=== PATIENT | male | born 1990 | race Caucasian/White ===

== ENCOUNTER 2022-01-07 20:32 | Emergency (ER) | payer MEDICAID ==
[~2022-01-07] VITALS: Ht 175.3 cm; Wt 65.9 kg
[2022-01-07 20:37] VITALS: BP 129/59
[2022-01-10] MEDS ORDERED: DIAZ5TAB22 PO (07:46)
[2022-01-10] MEDS ORDERED: ONDA4TAB12 PO (07:46)
== END 2022-01-07 21:40 ==
LOC: ER 20:33
DX: S39.012A Strain of muscle, fascia and tendon of lower back, initial encounter (principal); S16.1XXA Strain of muscle, fascia and tendon at neck level, initial encounter; Z02.89 Encounter for other administrative examinations; V87.7XXA Person injured in collision between other specified motor vehicles (traffic), initial encounter; Y93.89 Activity, other specified; Y92.89 Other specified places as the place of occurrence of the external cause; Y99.8 Other external cause status
CPT/HCPCS: 72040; 72100; 99283

== ENCOUNTER 2022-01-10 16:51 | Inpatient (IN) | payer MEDICAID, OTHER ==
[~2022-01-10] VITALS: Ht 180.3 cm; Wt 63.6 kg
[~2022-01-10 16:51] MED LIST: DIAZ5TAB22 PO; ONDA4TAB12 PO
--- NOTE | 2022-01-10 19:34 | NUR ---
X RAY AT BEDSIDE
[2022-01-10] MEDS ORDERED: LORazepam 2 mg/ml vial IV STA (19:58)
[2022-01-10] MEDS ORDERED: folic acid 1mg/0.2ml inj IV SCH (20:00)
[2022-01-10] MEDS ORDERED: normal saline 1000ml 1,000 ML IV ONE (20:00)
--- NOTE | 2022-01-10 20:19 | NUR ---
PT BECOMING AGITATED. SECURITY AT BEDSIDE
[2022-01-10 20:23] LABS: BASOPHILS % (AUTO) 0.3 % (0-1); EOSINOPHILS % (AUTO) 0.2 % (0-6); HEMATOCRIT 36.4 % (42.0-52.0); HEMOGLOBIN 12.7 g/dl (14.0-17.9); LYMPHOCYTES # (AUTO) 0.8 X10'3 (1.1-4.8); LYMPHOCYTES % (AUTO) 8.4 % (21-51); MEAN CORPUSCULAR HEMOGLOBIN 35.2 PG (27.0-31.0); MEAN CORPUSCULAR HGB CONC 34.9 g/dL (33.0-36.5); MEAN CORPUSCULAR VOLUME 100.6 FL (78-98); MEAN PLATELET VOLUME 7.7 FL (7.4-10.4); MONOCYTES # (AUTO) 1.3 X10'3 (0-0.9); MONOCYTES % (AUTO) 13.6 % (2-12); NEUTROPHILS # (AUTO) 7.5 X10'3 (1.8-7.7); NEUTROPHILS % (AUTO) 77.5 % (42-75); PLATELET COUNT 174 X10'3 (140-440); RED BLOOD COUNT 3.62 X10'6 (4.70-6.10); RED CELL DISTRIBUTION WIDTH 14.4 % (11.5-14.5); WHITE BLOOD COUNT 9.7 X10'3 (4.5-11.0)
[2022-01-10] MEDS ORDERED: LORazepam 2 mg/ml vial IM ONE (20:30)
[2022-01-10 20:39] LABS: ALANINE AMINOTRANSFERASE 72 U/L (12-78); ALBUMIN 4.4 G/DL (3.4-5.0); ALBUMIN/GLOBULIN RATIO 1.2 (1.1-1.5); ALKALINE PHOSPHATASE 61 IU/L (46-116); ANION GAP 19 (8-16); ASPARTATE AMINO TRANSFERASE 127 U/L (10-37); BILIRUBIN,TOTAL 1.3 MG/DL (0.1-1.0); BLOOD UREA NITROGEN 7 MG/DL (7-18); CALCIUM 9.2 MG/DL (8.5-10.1); CHLORIDE 99 MMOL/L (99-107); ETHANOL < 0.010 GM/DL (0.0-0.010); GLUCOSE 80 MG/DL (70-104); LIPASE < 50 U/L (73-393); SODIUM 140 MMOL/L (135-145); TOTAL CARBON DIOXIDE 21.7 MMOL/L (24-32); eGFR > 90 ML/MIN
[2022-01-10 20:45] LABS: ACETAMINOPHEN < 2.0 UG/ML (10-30)
[2022-01-10] MEDS ORDERED: POTASSIUM BICARB 20meq eff tab 20 MEQ TABLET.EFF PO STA (20:47)
[2022-01-10] MEDS ORDERED: potassium Cl 10 mEq/100mL bag IV ONE (20:50)
[2022-01-10] MEDS ORDERED: temazepam 15mg capsule PO PRN (21:00)
[2022-01-10] MEDS: thiamine 100mg/ml 2ml inj. IV SCH ×2 (21:18→21:29)
[2022-01-10] MEDS ORDERED: dextrose 50%-water 50ml dispensing syringe IV PRN (22:40)
[2022-01-10] MEDS ORDERED: magnesium Cl slow-release 64mg tablet PO PRN (22:40)
[2022-01-10] MEDS ORDERED: potassium CL 10mEq/100ml bag 100 ML IV PRN (22:40)
[2022-01-10] MEDS ORDERED: mag hydrox/Alum hydrox/simeth 30ml oral suspension PO PRN (22:40)
[2022-01-10] MEDS ORDERED: ondansetron 4mg rapidly disintigrating tab PO PRN (22:40)
[2022-01-10] MEDS ORDERED: haloperidol 5mg tablet PO PRN (22:40)
[2022-01-10] MEDS ORDERED: diphenhydrAMINE 25mg capsule PO PRN (22:40)
[2022-01-10] MEDS ORDERED: HYDROcodone/acetaminophen 5mg/325mg tablet PO PRN (22:40)
[2022-01-10] MEDS ORDERED: bisacodyl 10mg suppository rectal RC PRN (22:40)
[2022-01-10] MEDS ORDERED: magnesium 2GM in 50ml NS 50 ML IV PRN (22:40)
[2022-01-10] MEDS ORDERED: LORazepam 1 MG tablet PO PRN (22:40)
[2022-01-10] MEDS ORDERED: morphine 2 MG/ML inj. syringe IV PRN ×2 (22:40)
[2022-01-10] MEDS ORDERED: POTASSIUM BICARB 20meq eff tab 20 MEQ TABLET.EFF PO PRN (22:40)
[2022-01-10] MEDS ORDERED: magnesium 4gm in 100ml NS 100 ML IV PRN (22:40)
[2022-01-10] MEDS ORDERED: HYDROmorphone inj. 0.5 MG/0.5 ML DISP.SYRIN IV PRN (22:40)
[2022-01-10] MEDS ORDERED: acetaminophen 325mg tablet PO PRN (22:40)
[2022-01-10] MEDS ORDERED: ondansetron/PF 4mg/2ml inj IV PRN (22:40)
[2022-01-10] MEDS ORDERED: magnesium hydroxide 30ml (MOM) UD suspension PO PRN (22:40)
[2022-01-10] MEDS ORDERED: diphenhydrAMINE 50 mg/ml inj IV PRN (22:40)
[2022-01-10 23:02] LABS: HEMOGLOBIN A1C 5.7 % (4.5-6.2)
[2022-01-10 23:11] LABS: CREATINE KINASE 403 U/L (39-308); MAGNESIUM 1.4 MG/DL (1.5-2.4); PHOSPHORUS 3.6 MG/DL (2.3-4.5)
[2022-01-10 23:14] LABS: APTT 30 SECONDS (22-32)
[2022-01-10] MEDS: haloperidol lactate 5mg/ml inj IM PRN (23:22)
[2022-01-10] MEDS ORDERED: diazepam inj 5 MG/ML inj. IM ONE (23:30)
[2022-01-11] MEDS: potassium Cl 20mEq in NS 1,000 ML IV SCH ×3 (00:42→19:25)
[2022-01-11] MEDS: LORazepam 2 mg/ml vial IV PRN ×11 (00:42→18:59)
--- NOTE | 2022-01-11 01:53 | NUR ---
PT HAS BEEN AGITATED THROUGHOUT SHIFT AND APPEARS TO BE HALLUCINATING. PT IS REFERING TO THINGS THAT ARE NOT THERE. OFFICER AT BEDSIDE ENTIRE TIME.
--- NOTE | 2022-01-11 02:49 | NUR ---
PT CONTINUING TO BE AGITATED DESPITE ETOH PROTOCOL MEDICATIONS. RN EXPRESSED CONCERNS TO FRANTZ JACKSON WHO GAVE VERBAL ORDER FOR VALIUM 5 MG Q2H. MD LANDRY DID NOT LAY EYES ON PATIENT PER RN REQUEST.
[2022-01-11] MEDS ORDERED: diazepam inj 5 MG/ML inj. IV ONE (02:50)
--- NOTE | 2022-01-11 02:51 | NUR ---
MELISSA RN SPOKE WITH DOCTOR LANDRY WHO GAVE VERBAL ORDER FOR ATIVAN 2MG Q1H
[2022-01-11] MEDS ORDERED: LORazepam 2 mg/ml vial IV ONE (02:55)
[2022-01-11] MEDS ORDERED: phenobarbital inj 130 MG in normal saline 100ml IV soln 99 ML IV SCH (04:13)
--- NOTE | 2022-01-11 04:41 | NUR ---
Pt is continuing to hallucinate and cannot appropriately answer questions. Pt is diaphoretic and agitated. Michele JACKSON came to assess patient per request of Parvez JACKSON. Phenobarbital has been ordered and started. RN is closely monitoring patient's oxygenation and overall status
[2022-01-11 05:36] LABS: URINE AMPHETAMINE SCREEN NEGATIVE (Neg); URINE BARBITUATE SCREEN NEGATIVE (Neg); URINE BENZODIAZEPINES SCREEN POSITIVE (Neg); URINE CANNABINOID SCREEN POSITIVE (Neg); URINE COCAINE SCREEN NEGATIVE (Neg); URINE METHADONE SCREEN NEGATIVE (Neg); URINE OPIATE SCREEN NEGATIVE (Neg); URINE PHENCYCLIDINE SCREEN NEGATIVE (Neg)
[2022-01-11 05:56] LABS: CLARITY,URINE CLEAR (Clear); COLOR,URINE STRAW (Yellow); GLUCOSE, URINE NEGATIVE (Neg); KETONES,URINE >=80 mg/dl (Neg); PH,URINE 5.5 (4.8-8.0); PROTEIN,URINE TRACE mg/dl (Neg); UA COLLECTION TYPE NON-SPECIFIED
[2022-01-11 05:57] LABS: LEUKOCYTE ESTERASE ,URINE NEGATIVE (Neg); NITRITES, URINE NEGATIVE (Neg); OCCULT BLOOD,URINE TRACE-INTACT (Neg); UROBILINOGEN,URINE 0.2 E.U/dL (0.2-1.0)
[2022-01-11 06:01] LABS: BACTERIA,URINE NONE SEEN /HPF (Neg); MUCUS STRANDS NONE SEEN /LPF (Neg); RBC,URINE NONE SEEN /HPF (0-2); SQUAMOUS EPITHELIAL CELL,UR FEW /LPF (FEW); WBC,URINE NONE SEEN /HPF (0-4)
[2022-01-11] MEDS: haloperidol lactate 5mg/ml inj IM PRN (06:33)
[2022-01-11] MEDS: heparin, porcine 5000 units/ml vial SQ SCH ×2 (07:00→21:16)
[2022-01-11] MEDS: thiamine 100mg/ml 2ml inj. IV SCH ×3 (07:00→21:15)
[2022-01-11 07:19] LABS: BASOPHILS % (AUTO) 0.3 % (0-1); EOSINOPHILS % (AUTO) 0.1 % (0-6); LYMPHOCYTES # (AUTO) 0.8 X10'3 (1.1-4.8); LYMPHOCYTES % (AUTO) 6.9 % (21-51); MEAN PLATELET VOLUME 8.3 FL (7.4-10.4); MONOCYTES # (AUTO) 1.9 X10'3 (0-0.9); MONOCYTES % (AUTO) 15.1 % (2-12); NEUTROPHILS # (AUTO) 9.5 X10'3 (1.8-7.7); NEUTROPHILS % (AUTO) 77.6 % (42-75); PLATELET COUNT 146 X10'3 (140-440); WHITE BLOOD COUNT 12.2 X10'3 (4.5-11.0)
--- NOTE | 2022-01-11 07:21 | NUR ---
PAGED DR DAVIDSON FOR NON BEHAV RESTRAINTS ,ALSO TO DISCUSS THE PT CONDITION ,NEED FOR TAMEZ ?
[2022-01-11] MEDS: pantoprazole 40mg Tablet.DR PO SCH (07:30)
[2022-01-11] MEDS ORDERED: LIDOcaine 2% 10ml TOPICAL JELLY (Urojet) TP ONE (07:30)
--- NOTE | 2022-01-11 07:32 | NUR ---
SPOKE TO DR DAVIDSON EARLIER ,SBAR PT CONDITION,RECEIVED TEL ORDER FOR TAMEZ CATHETER FOR CRITICAL MONITORING ,NON BEHAV RESTRAIN FOR CONFUSION . PER MD IF PT IS NOT GETTING BETTER WITH ATIVIAN MIGHT NEED INTUBATION .MADE CHARGE NURSE AWARE.
--- NOTE | 2022-01-11 07:34 | NUR ---
CHECKED THE PROTOCOL FOR ALCHOL WITHDRAWL ,PT IS ON MOD ALCHOL WITHDRAWL PROTOCOL,PAGED DR DAVIDSON AGAIN TO GET ORDERS FOR SEVERE ALCHOL WITHDRAWL.
[2022-01-11 07:43] LABS: ALANINE AMINOTRANSFERASE 52 U/L (12-78); ALBUMIN 3.7 G/DL (3.4-5.0); ALBUMIN/GLOBULIN RATIO 1.2 (1.1-1.5); ALKALINE PHOSPHATASE 52 IU/L (46-116); AMYLASE 52 U/L (25-115); ANION GAP 23 (8-16); ASPARTATE AMINO TRANSFERASE 100 U/L (10-37); BILIRUBIN,TOTAL 1.5 MG/DL (0.1-1.0); BLOOD UREA NITROGEN 4 MG/DL (7-18); CALCIUM 8.4 MG/DL (8.5-10.1); CHLORIDE 100 MMOL/L (99-107); CREATININE 0.67 MG/DL (0.60-1.10); GLUCOSE 67 MG/DL (70-104); MAGNESIUM 1.6 MG/DL (1.5-2.4); POTASSIUM 3.4 MMOL/L (3.5-5.1); SODIUM 137 MMOL/L (135-145); TOTAL PROTEIN 6.8 G/DL (6.4-8.2); eGFR > 90 ML/MIN
--- NOTE | 2022-01-11 07:45 | NUR ---
PT IS RESTING COMFORTABLY ,NO DISTRESS NOTED ,OFFICER AT BEDSIDE ,WILL DO TAMEZ WHEN ITS TIME DUE FOR ANOTHER ROUND OF ATIVIAN .WILL CONT TO MONITOR.
[2022-01-11 07:53] LABS: TOTAL CARBON DIOXIDE 14.4 MMOL/L (24-32)
[2022-01-11] MEDS: docusate sod 100mg capsule PO SCH ×2 (08:00→20:00)
--- NOTE | 2022-01-11 08:19 | NUR ---
PT WAS SOAKED IN URINE AND SWEAT ,CHANGED THE BED LININ ,CHANGE THE GOWN ,TAMEZ PLACED ,RESTRAIN RELEASED AND REAPPLIED ,TAKEN RGT ARM RESTRAIN OFF PT HAS FRACTURE TO SAME EXTREMITY .OFFICER MADE AWARE TO KEEP AN EYE ON PT .MACRINA DOMINIQUE HELPED WITH THE PT CARE.
[2022-01-11 08:28] LABS: HEMATOCRIT 32.9 % (42.0-52.0); HEMOGLOBIN 11.3 g/dl (14.0-17.9); MEAN CORPUSCULAR HEMOGLOBIN 34.9 PG (27.0-31.0); MEAN CORPUSCULAR VOLUME 101.5 FL (78-98); RED BLOOD COUNT 3.24 X10'6 (4.70-6.10)
--- NOTE | 2022-01-11 08:28 | NUR ---
CALLED AND SPOKE TO LOREISKALEY SCHRADER RN TO CHECK THE IV COMPATABILITY OF SODIUM BICARB DRIP AND POTTASSIUM CHLORIDE DRIP ,ALSO TO GET FOLIC ACID AND BICARB DRIP READY AND BRING IT TO THE ER , WE HAVE ONLY 1 TECH ON FLOOR.
[2022-01-11 08:29] LABS: MEAN CORPUSCULAR HGB CONC 34.4 g/dL (33.0-36.5)
--- NOTE | 2022-01-11 08:35 | NUR ---
PAGED DR DAVIDSON TO GET ORDER FOR SEVERE ALCHOL PROTOCOL.
[2022-01-11] MEDS ORDERED: LORazepam 2 mg/ml vial IV PRN (08:50)
[2022-01-11] MEDS ORDERED: haloperidol lactate 5mg/ml inj IM PRN (08:50)
--- NOTE | 2022-01-11 08:51 | NUR ---
DR DAVIDSON AT BEDSIDE RECIVED THE VERBAL ORDERS FOR SEVERE ALCHOL WITHDRAWL PROTOCOL.
[2022-01-11 09:02] LABS: PLATELET ESTIMATE NORMAL; TOTAL CELLS COUNTED 100
[2022-01-11 09:03] LABS: STOMATOCYTES 1+
[2022-01-11] MEDS: folic acid 1mg/0.2ml inj IV SCH (09:14)
[2022-01-11] MEDS: sodium bicarbonate (8.4%) inj. 150 MEQ in dextrose 5%-water 1,000 ML IV SCH ×2 (09:14→22:04)
[2022-01-11] MEDS: K and/or MAG REPLACEMENT MC SCH ×2 (09:16→20:00)
--- NOTE | 2022-01-11 15:40 | NUR ---
paged dr benoit and spoke to him that pt rgt hand is more swollen then yeterday ,recieved tel order for splinting the hand with ativan and halodol prn orders available ,will follow the orders.
--- NOTE | 2022-01-11 16:26 | NUR ---
notified dr benoit that splint didn't worked [facility] has placed the plaster with splint ,as per its okay .sbar that pt is off the restraint and doing very well,[id number] .
[2022-01-11] MEDS: phenobarbital inj 130 MG in normal saline 100ml IV soln 99 ML IV SCH (16:55)
--- NOTE | 2022-01-11 19:08 | NUR ---
ATTEMPTED TO CALL REPORT. PCU WILL CALL BACK
[2022-01-11 19:14] LABS: POTASSIUM 3.6 MMOL/L (3.5-5.1)
--- NOTE | 2022-01-11 19:26 | NUR ---
RT AT BEDSIDE
--- NOTE | 2022-01-11 19:32 | NUR ---
PT TO CT
[2022-01-11 19:35] LABS: ALANINE AMINOTRANSFERASE 54 U/L (12-78); ALBUMIN 3.6 G/DL (3.4-5.0); ALBUMIN/GLOBULIN RATIO 1.1 (1.1-1.5); ALKALINE PHOSPHATASE 54 IU/L (46-116); ANION GAP 15 (8-16); ASPARTATE AMINO TRANSFERASE 76 U/L (10-37); BILIRUBIN,TOTAL 1.5 MG/DL (0.1-1.0); BLOOD UREA NITROGEN 2 MG/DL (7-18); BUN/CREATININE RATIO 2.9 (5.4-32.0); CALCIUM 8.2 MG/DL (8.5-10.1); CHLORIDE 102 MMOL/L (99-107); CREATININE 0.69 MG/DL (0.60-1.10); GLUCOSE 93 MG/DL (70-104); SODIUM 139 MMOL/L (135-145); TOTAL CARBON DIOXIDE 22.5 MMOL/L (24-32); eGFR > 90 ML/MIN
[2022-01-11 19:43] LABS: CREATINE KINASE 594 U/L (39-308); LIPASE < 50 U/L (73-393)
[2022-01-11 20:20] LABS: ABG BASE EXCESS -4.2 mmol/L (-2.0-2.0); ABG HCO3 19.2 mmol/L (22.0-26.0); ABG OXYGEN SATURATION 93.1 % (94-97); ABG PCO2 (T) 30.3 mmHg (35.0-48.0); ABG PO2 (T) 63.9 mmHg (75.0-100.0); ALLEN'S TEST Modified; FCOHb 0.5 % (0.0-3.9); FMetHb 0.3 % (0.0-1.5); FO2Hb 92.4 % (94-97); PATIENT TEMPERATURE 36.9; TOTAL HEMOGLOBIN 12.2 G/dl (14.0-18.0)
--- NOTE | 2022-01-11 20:20 | NUR ---
PT PLACED ON 2L NC PER RT. MD ORDERS FOR OXYGEN ARE IN
--- NOTE | 2022-01-11 21:24 | NUR ---
PHARMACY IS PREPARING BICARB DRIP NOW AND WILL CALL WHEN READY
[2022-01-11 22:00] VITALS: BP 145/89
--- NOTE | 2022-01-11 22:59 | NUR ---
Patient is very sleepy, unable to answer admission assessment questions.
[2022-01-12 02:00] VITALS: BP 137/88
[2022-01-12] MEDS: phenobarbital inj 130 MG in normal saline 100ml IV soln 99 ML IV SCH ×2 (05:13→16:11)
[2022-01-12] MEDS: potassium Cl 20mEq in NS 1,000 ML IV SCH ×2 (05:20→15:32)
[2022-01-12 06:06] VITALS: BP 133/86
[2022-01-12 06:40] LABS: BASOPHILS % (AUTO) 0.2 % (0-1); EOSINOPHILS # (AUTO) 0.1 X10'3 (0-0.9); EOSINOPHILS % (AUTO) 1.7 % (0-6); HEMATOCRIT 33.1 % (42.0-52.0); HEMOGLOBIN 11.6 g/dl (14.0-17.9); LYMPHOCYTES # (AUTO) 0.7 X10'3 (1.1-4.8); LYMPHOCYTES % (AUTO) 9.6 % (21-51); MEAN CORPUSCULAR HEMOGLOBIN 35.1 PG (27.0-31.0); MEAN CORPUSCULAR HGB CONC 35.1 g/dL (33.0-36.5); MEAN CORPUSCULAR VOLUME 100.2 FL (78-98); MEAN PLATELET VOLUME 7.9 FL (7.4-10.4); MONOCYTES # (AUTO) 0.9 X10'3 (0-0.9); NEUTROPHILS # (AUTO) 5.7 X10'3 (1.8-7.7); NEUTROPHILS % (AUTO) 76.5 % (42-75); PLATELET COUNT 142 X10'3 (140-440); WHITE BLOOD COUNT 7.5 X10'3 (4.5-11.0)
[2022-01-12 06:55] LABS: ALANINE AMINOTRANSFERASE 45 U/L (12-78); ALBUMIN 3.1 G/DL (3.4-5.0); ALKALINE PHOSPHATASE 46 IU/L (46-116); AMYLASE 36 U/L (25-115); ANION GAP 12 (8-16); ASPARTATE AMINO TRANSFERASE 56 U/L (10-37); BILIRUBIN,TOTAL 1.1 MG/DL (0.1-1.0); BLOOD UREA NITROGEN 2 MG/DL (7-18); BUN/CREATININE RATIO 3.8 (5.4-32.0); CALCIUM 7.9 MG/DL (8.5-10.1); CHLORIDE 99 MMOL/L (99-107); CREATININE 0.52 MG/DL (0.60-1.10); GLUCOSE 106 MG/DL (70-104); MAGNESIUM 1.4 MG/DL (1.5-2.4); PHOSPHORUS 2.3 MG/DL (2.3-4.5); SODIUM 139 MMOL/L (135-145); TOTAL CARBON DIOXIDE 27.8 MMOL/L (24-32); TOTAL PROTEIN 6.2 G/DL (6.4-8.2); eGFR > 90 ML/MIN
[2022-01-12 07:04] LABS: POTASSIUM 2.9 MMOL/L (3.5-5.1)
[2022-01-12] MEDS: docusate sod 100mg capsule PO SCH ×2 (08:00→21:27)
[2022-01-12] MEDS: POTASSIUM BICARB 20meq eff tab 20 MEQ TABLET.EFF PO PRN ×3 (08:04→18:25)
[2022-01-12] MEDS: pantoprazole 40mg Tablet.DR PO SCH (08:04)
[2022-01-12] MEDS: HYDROcodone/acetaminophen 10/325mg tab PO PRN (08:05)
[2022-01-12] MEDS: thiamine 100mg/ml 2ml inj. IV SCH ×4 (08:06→21:27)
[2022-01-12] MEDS: heparin, porcine 5000 units/ml vial SQ SCH ×2 (08:10→21:27)
[2022-01-12] MEDS: folic acid 1mg/0.2ml inj IV SCH (08:34)
[2022-01-12] MEDS: sodium bicarbonate (8.4%) inj. 150 MEQ in dextrose 5%-water 1,000 ML IV SCH ×2 (08:34→21:25)
[2022-01-12] MEDS: K and/or MAG REPLACEMENT MC SCH ×2 (09:25→20:00)
[2022-01-12 11:11] VITALS: BP 117/86
[2022-01-12 15:15] VITALS: BP 116/75
[2022-01-12 18:00] VITALS: BP 119/82
[2022-01-12 22:00] VITALS: BP 137/93
[2022-01-13] MEDS: potassium Cl 20mEq in NS 1,000 ML IV SCH (01:52)
[2022-01-13 02:00] VITALS: BP 137/88
[2022-01-13] MEDS: phenobarbital inj 130 MG in normal saline 100ml IV soln 99 ML IV SCH (05:00)
[2022-01-13 06:00] VITALS: BP 125/80
--- NOTE | 2022-01-13 06:44 | NUR ---
Problems reprioritized. Patient report given, questions answered & plan of care reviewed with Diana DOMINIQUE.
[2022-01-13 06:47] LABS: BASOPHILS % (AUTO) 0.4 % (0-1); EOSINOPHILS # (AUTO) 0.1 X10'3 (0-0.9); EOSINOPHILS % (AUTO) 1.4 % (0-6); HEMATOCRIT 37.1 % (42.0-52.0); HEMOGLOBIN 12.9 g/dl (14.0-17.9); LYMPHOCYTES % (AUTO) 12.1 % (21-51); MEAN CORPUSCULAR HEMOGLOBIN 35.2 PG (27.0-31.0); MEAN CORPUSCULAR HGB CONC 34.6 g/dL (33.0-36.5); MEAN CORPUSCULAR VOLUME 101.8 FL (78-98); MEAN PLATELET VOLUME 8.3 FL (7.4-10.4); MONOCYTES # (AUTO) 1.1 X10'3 (0-0.9); MONOCYTES % (AUTO) 13.7 % (2-12); NEUTROPHILS % (AUTO) 72.4 % (42-75); PLATELET COUNT 163 X10'3 (140-440); RED BLOOD COUNT 3.65 X10'6 (4.70-6.10); RED CELL DISTRIBUTION WIDTH 13.8 % (11.5-14.5); WHITE BLOOD COUNT 8.3 X10'3 (4.5-11.0)
[2022-01-13 07:00] LABS: ALANINE AMINOTRANSFERASE 41 U/L (12-78); ALBUMIN 3.5 G/DL (3.4-5.0); ALBUMIN/GLOBULIN RATIO 0.9 (1.1-1.5); ALKALINE PHOSPHATASE 55 IU/L (46-116); AMYLASE 45 U/L (25-115); ANION GAP 9 (8-16); ASPARTATE AMINO TRANSFERASE 47 U/L (10-37); BILIRUBIN,TOTAL 0.9 MG/DL (0.1-1.0); BLOOD UREA NITROGEN 3 MG/DL (7-18); BUN/CREATININE RATIO 4.8 (5.4-32.0); CALCIUM 9.2 MG/DL (8.5-10.1); CHLORIDE 101 MMOL/L (99-107); CREATININE 0.63 MG/DL (0.60-1.10); GLUCOSE 113 MG/DL (70-104); MAGNESIUM 1.6 MG/DL (1.5-2.4); PHOSPHORUS 2.9 MG/DL (2.3-4.5); POTASSIUM 3.3 MMOL/L (3.5-5.1); SODIUM 141 MMOL/L (135-145); TOTAL CARBON DIOXIDE 31.5 MMOL/L (24-32); TOTAL PROTEIN 7.2 G/DL (6.4-8.2); eGFR > 90 ML/MIN
[2022-01-13] MEDS: K and/or MAG REPLACEMENT MC SCH (08:00)
[2022-01-13] MEDS: thiamine 100mg/ml 2ml inj. IV SCH (08:30)
[2022-01-13] MEDS: pantoprazole 40mg Tablet.DR PO SCH (08:30)
[2022-01-13] MEDS: folic acid 1mg/0.2ml inj IV SCH (08:30)
[2022-01-13] MEDS: docusate sod 100mg capsule PO SCH (08:31)
[2022-01-13] MEDS: heparin, porcine 5000 units/ml vial SQ SCH (08:31)
[2022-01-13] MEDS ORDERED: THIA100T70 PO (09:43)
[2022-01-13] MEDS ORDERED: POTA-207 PO (09:43)
[2022-01-13] MEDS ORDERED: FOLI1TAB27 PO (09:43)
[2022-01-13] MEDS ORDERED: PHEN97.22 PO (09:43)
[2022-01-13 11:00] VITALS: BP 122/87
--- NOTE | 2022-01-13 11:10 | NUR ---
FC DC'd per Dr Greer's order. Pt tolerated well, 1000cc's clear yellow urine drained. Post-FC removal education provided. Pt states understanding. Urinal provided.
[2022-01-13] MEDS: HYDROcodone/acetaminophen 10/325mg tab PO PRN (11:48)
[2022-01-13 15:00] VITALS: BP 126/82
--- NOTE | 2022-01-13 15:15 | NUR ---
Pt discharged back to senior care, with all belongings, accompanied by information officer. Discharge instructions and medications reviewed. New prescriptions sent with pt to senior care to be filled once he arrives. Pt instructed to obtain xray to right hand in 2 weeks, and BMP in 1 week. Pt states understanding and willingness to comply with all discharge instructions. IV DC'd, cannula intact. Pt escorted to front lobby by information officer and PCT.
[2022-01-15] MEDS ORDERED: folic acid 1mg tablet PO SCH (08:00)
[2022-01-15] MEDS ORDERED: thiamine 100mg tablet PO SCH (08:00)
== END 2022-01-13 15:18 | DRG 563 ==
LOC: ER 16:52 → EEVIPCON 16:52 → UNDOADMIN 22:44 → ED HOLD 22:44 → EDBEDREQ 01-11 18:39 → EDBEDREQSVC 01-11 18:39 → PCU 3S 01-11 21:59
PROVIDERS: ADMIT Family Medicine; ATTEND Family Medicine
PROC: 2W3EX1Z Immobilization of Right Hand using Splint (ICD-10-PCS; principal; 2022-01-10)
DX: S62.316A Displaced fracture of base of fifth metacarpal bone, right hand, initial encounter for closed fracture (principal); E87.2 Acidosis; F10.239 Alcohol dependence with withdrawal, unspecified; M62.82 Rhabdomyolysis; X58.XXXA Exposure to other specified factors, initial encounter; D64.9 Anemia, unspecified; E83.42 Hypomagnesemia; E87.6 Hypokalemia; K70.10 Alcoholic hepatitis without ascites; R00.0 Tachycardia, unspecified; Z87.891 Personal history of nicotine dependence; Y93.89 Activity, other specified; Y92.89 Other specified places as the place of occurrence of the external cause; Y99.8 Other external cause status; Z79.899 Other long term (current) drug therapy
CPT/HCPCS: 36415; 36600; 70450; 71045; 73130; 80053; 80305; 80320; 80329; 81001; 82150; 82550; 82803; 82948; 83036; 83605; 83690; 83735; 83880; 84100; 84132; 84443; 85007; 85018; 85025; 85610; 85730; 87081; 92508; 92616; 96374; 97161; 97530; 99285; A4565; A4615; A6449; C1758; G0378; J1200; J1630; J1644; J2060; J2560; J3360; J3411; J3475; J3480; J3490; J7030; J7070

== ENCOUNTER 2022-10-22 14:17 | Emergency (ER) | payer MEDICAID, OTHER ==
[~2022-10-22] VITALS: Ht 180.3 cm; Wt 68.2 kg
[~2022-10-22 14:17] MED LIST changes: -DIAZ5TAB22 PO; +FOLI1TAB27 PO; +PHEN97.22 PO; +POTA-207 PO; +THIA100T70 PO
[2022-10-22 14:39] VITALS: BP 121/87
[2022-10-22] MEDS ORDERED: CHLO25CA10 PO (15:28)
== END 2022-10-22 16:11 | disposition home or self-care (01) ==
LOC: ER 14:17
DX: F10.20 Alcohol dependence, uncomplicated (principal); Z79.899 Other long term (current) drug therapy
CPT/HCPCS: 99283

== ENCOUNTER 2022-12-09 20:32 | Inpatient (IN) | payer MEDICAID ==
[~2022-12-09] VITALS: Ht 180.3 cm; Wt 65.9 kg
[~2022-12-09 20:32] MED LIST changes: +CHLO25CA10 PO
[2022-12-09 23:30] LABS: BASOPHILS % (AUTO) 0.6 % (0-1); EOSINOPHILS % (AUTO) 0 % (0-6); HEMATOCRIT 46.7 % (42.0-52.0); LYMPHOCYTES # (AUTO) 0.9 X10'3 (1.1-4.8); LYMPHOCYTES % (AUTO) 11.5 % (21-51); MEAN CORPUSCULAR HEMOGLOBIN 34.7 PG (27.0-31.0); MEAN CORPUSCULAR HGB CONC 34.4 g/dL (33.0-36.5); MEAN CORPUSCULAR VOLUME 100.9 FL (78-98); MEAN PLATELET VOLUME 7.2 FL (7.4-10.4); MONOCYTES # (AUTO) 0.2 X10'3 (0-0.9); MONOCYTES % (AUTO) 2.9 % (2-12); NEUTROPHILS # (AUTO) 6.3 X10'3 (1.8-7.7); PLATELET COUNT 124 X10'3 (140-440); RED BLOOD COUNT 4.63 X10'6 (4.70-6.10); RED CELL DISTRIBUTION WIDTH 14.3 % (11.5-14.5); WHITE BLOOD COUNT 7.5 X10'3 (4.5-11.0)
[2022-12-09 23:47] LABS: ALANINE AMINOTRANSFERASE 153 U/L (12-78); ALBUMIN 4.7 G/DL (3.4-5.0); ALBUMIN/GLOBULIN RATIO 1.1 (1.1-1.5); ALKALINE PHOSPHATASE 97 IU/L (46-116); ANION GAP 25 (8-16); ASPARTATE AMINO TRANSFERASE 204 U/L (10-37); BLOOD UREA NITROGEN 11 MG/DL (7-18); BUN/CREATININE RATIO 11.6 (10.0-20.0); CALCIUM 9.2 MG/DL (8.5-10.1); CHLORIDE 90 MMOL/L (99-107); CREATININE 0.95 MG/DL (0.60-1.10); GLUCOSE 128 MG/DL (70-104); POTASSIUM 4.4 MMOL/L (3.5-5.1); SODIUM 138 MMOL/L (135-145); TOTAL CARBON DIOXIDE 23.4 MMOL/L (24-32); TOTAL PROTEIN 8.9 G/DL (6.4-8.2); eGFR > 90 ML/MIN
[2022-12-09 23:48] LABS: LIPASE 69 U/L (73-393)
[2022-12-09 23:53] LABS: ETHANOL 0.306 GM/DL (0.0-0.010)
--- NOTE | 2022-12-10 00:31 | NUR ---
called x1 , pt not in lobby
[2022-12-10] MEDS ORDERED: thiamine 100mg/ml 2ml inj. IM SCH (02:25)
[2022-12-10] MEDS ORDERED: thiamine 100mg/ml 2ml inj. IM ONE (02:25)
[2022-12-10] MEDS ORDERED: ondansetron 4mg rapidly disintigrating tab PO ONE (02:35)
[2022-12-10] MEDS ORDERED: LORazepam 1 MG tablet PO ONE (02:35)
[2022-12-10] MEDS ORDERED: gabapentin 400mg capsule PO ONE (02:35)
[2022-12-10] MEDS ORDERED: gabapentin 100mg capsule PO ONE (02:40)
[2022-12-10] MEDS ORDERED: normal saline 1000ML IV soln IVB ONE (03:00)
[2022-12-10] MEDS ORDERED: morphine 2 MG/ML inj. syringe IV PRN (03:45)
[2022-12-10] MEDS ORDERED: bisacodyl 10mg suppository rectal RC PRN (03:45)
[2022-12-10] MEDS ORDERED: LORazepam 2 mg/ml vial IV PRN (03:45)
[2022-12-10] MEDS ORDERED: potassium Cl 40MEQ/1/2NS 520ml 520 ML IV PRN (03:45)
[2022-12-10] MEDS ORDERED: acetaminophen 650mg rectal suppository RC PRN (03:45)
[2022-12-10] MEDS ORDERED: haloperidol lactate 5mg/ml inj IM PRN (03:45)
[2022-12-10] MEDS ORDERED: magnesium Cl slow-release 64mg tablet PO PRN (03:45)
[2022-12-10] MEDS ORDERED: mag hydrox/Alum hydrox/simeth 30ml oral suspension PO PRN (03:45)
[2022-12-10] MEDS ORDERED: dextrose 50%-water 50ml dispensing syringe IV PRN (03:45)
[2022-12-10] MEDS ORDERED: ondansetron 4mg rapidly disintigrating tab PO PRN (03:45)
[2022-12-10] MEDS ORDERED: diphenhydrAMINE 50 mg/ml inj IV PRN (03:45)
[2022-12-10] MEDS ORDERED: HYDROcodone/acetaminophen 5mg/325mg tablet PO PRN (03:45)
[2022-12-10] MEDS ORDERED: acetaminophen 325mg tablet PO PRN ×2 (03:45)
[2022-12-10] MEDS ORDERED: magnesium hydroxide 30ml (MOM) UD suspension PO PRN (03:45)
[2022-12-10] MEDS ORDERED: diphenhydrAMINE 25mg capsule PO PRN (03:45)
[2022-12-10] MEDS ORDERED: magnesium 4gm in 100ml NS 100 ML IV PRN (03:45)
[2022-12-10] MEDS ORDERED: potassium Cl 20 mEq SR tablet PO PRN ×2 (03:45)
[2022-12-10] MEDS ORDERED: magnesium 2GM in 50ml NS 50 ML IV PRN (03:45)
[2022-12-10] MEDS: metoclopramide 5 mg/ml inj IV PRN ×2 (04:56→15:06)
[2022-12-10] MEDS ORDERED: pantoprazole 40MG/NS 100ML BAG 100 ML IV SCH (06:00)
[2022-12-10 06:31] LABS: MAGNESIUM 1.2 MG/DL (1.5-2.4); PHOSPHORUS 4.2 MG/DL (2.3-4.5); POTASSIUM 4.3 MMOL/L (3.5-5.1)
[2022-12-10] MEDS: dextrose 5%-1/2 normal saline 1,000 ML IV SCH ×4 (06:37→23:45)
[2022-12-10] MEDS: LORazepam 2 mg/ml vial IV PRN (06:45)
--- NOTE | 2022-12-10 06:45 | NUR ---
CIWA SCORE 10, SEDATION GIVEN PER MD ORDER (SEE EMAR).
[2022-12-10 06:53] LABS: HEMOGLOBIN A1C 5.6 % (4.5-6.2)
[2022-12-10] MEDS: K and/or MAG REPLACEMENT MC SCH ×2 (07:01→19:22)
[2022-12-10] MEDS: docusate sod 100mg capsule PO SCH ×2 (07:05→20:22)
[2022-12-10 07:12] LABS: APTT 28 SECONDS (22-32)
[2022-12-10] MEDS: thiamine 100mg/ml 2ml inj. IV SCH ×3 (07:21→20:22)
[2022-12-10] MEDS: nicotine 21mg patch - 24 hr TD SCH (07:21)
[2022-12-10 08:07] LABS: OCCULT BLOOD STOOL NEGATIVE (Neg)
--- NOTE | 2022-12-10 08:28 | NUR ---
CALL TO PHARMACY FOR FOLIC ACID PER MD ORDER (SEE EMAR). PHARMACY TO DELIVER PER TECH.
--- NOTE | 2022-12-10 09:04 | NUR ---
Received order for consult. Met with patient in regards to alcohol use and to see if patient was interested in resources for treatment options. Patient is interested in outpatient services. I talked to patient about medication to help with cravings. I gave patient a card for [facility], a list of outpatient facilities and my card to call me with any questions.
--- NOTE | 2022-12-10 09:30 | NUR ---
PATIENT SITTING UP IN BED EATING BREAKFAST, HR 126, NO SIGNS OF DISTRESS NOTED, ALL SAFETY MEASURES IN PLACE.
[2022-12-10] MEDS: folic acid 1mg/0.2ml inj IV SCH (09:38)
[2022-12-10 10:25] LABS: CLARITY,URINE CLEAR (Clear); COLOR,URINE YELLOW (Yellow); GLUCOSE, URINE NEGATIVE (Neg); KETONES,URINE >=80 mg/dl (Neg); LEUKOCYTE ESTERASE ,URINE NEGATIVE (Neg); NITRITES, URINE NEGATIVE (Neg); OCCULT BLOOD,URINE SMALL (Neg); PROTEIN,URINE 100 mg/dl (Neg); UROBILINOGEN,URINE 0.2 E.U/dL (0.2-1.0)
[2022-12-10 10:30] LABS: UA COLLECTION TYPE VOIDED
[2022-12-10 10:34] LABS: BACTERIA,URINE FEW /HPF (Neg); MUCUS STRANDS FEW /LPF (Neg); RBC,URINE 0-2 /HPF (0-2); SQUAMOUS EPITHELIAL CELL,UR FEW /LPF (FEW); WBC,URINE 0-4 /HPF (0-4)
[2022-12-10 10:35] LABS: COARSE GRANULAR CAST 0-3 /LPF (NEGATIVE)
[2022-12-10 10:44] LABS: URINE AMPHETAMINE SCREEN NEGATIVE (Neg); URINE BARBITUATE SCREEN NEGATIVE (Neg); URINE BENZODIAZEPINES SCREEN NEGATIVE (Neg); URINE CANNABINOID SCREEN POSITIVE (Neg); URINE COCAINE SCREEN NEGATIVE (Neg); URINE METHADONE SCREEN NEGATIVE (Neg); URINE OPIATE SCREEN NEGATIVE (Neg); URINE PHENCYCLIDINE SCREEN NEGATIVE (Neg)
--- NOTE | 2022-12-10 10:45 | NUR ---
Patient sleeping on right side, no signs of distress noted.
[2022-12-10] MEDS ORDERED: NO HOME MEDS (12:21)
--- NOTE | 2022-12-10 12:30 | NUR ---
Patient sleeping, no signs of distress noted.
--- NOTE | 2022-12-10 14:58 | NUR ---
PATIENT CONTINUES TO SLEEP, NO SIGNS OF DISTRESS NOTED.
--- NOTE | 2022-12-10 17:07 | NUR ---
SBAR TO NIKITA RN PAGED DR. CURTIS HOSPITALIST ASKING IF PATIENT NEEDS THE D5 1/2 NS AT 100ML/HR IF PATIENT HAS A REGULAR DIET WAITING FOR CALL BACK PRIMARY RN AWARE
--- NOTE | 2022-12-10 17:25 | NUR ---
Girlfriend at bedside, all questions and concerns addressed, patient informed he is going up to the unit. IVF finished, Per Dr Hawk continue D5 1/2 NS per order, (see EMAR).
[2022-12-10 17:28] VITALS: BP 128/82
--- NOTE | 2022-12-10 17:30 | NUR ---
Received patient report from Oli DOMINIQUE, pt arrived with cell phone, tshirt, and chalo.
--- NOTE | 2022-12-10 18:14 | NUR ---
Problems reprioritized. Patient report given, questions answered & plan of care reviewed with Haroldo DOMINIQUE.
[2022-12-10 20:00] VITALS: BP 124/80
[2022-12-10] MEDS: HYDROcodone/acetaminophen 10/325mg tab PO PRN (20:27)
[2022-12-10] MEDS ORDERED: temazepam 15mg capsule PO PRN (21:00)
[2022-12-11] VITALS (7 sets, daily range): BP systolic 121–176; BP diastolic 74–97
[2022-12-11] MEDS: ondansetron/PF 4mg/2ml inj IV PRN ×4 (00:59→23:00)
[2022-12-11] MEDS: LORazepam 2 mg/ml vial IV PRN ×5 (01:11→23:00)
[2022-12-11 06:14] LABS: BASOPHILS % (AUTO) 0.5 % (0-1); EOSINOPHILS % (AUTO) 0.6 % (0-6); HEMATOCRIT 37.9 % (42.0-52.0); HEMOGLOBIN 12.9 g/dl (14.0-17.9); LYMPHOCYTES # (AUTO) 1.1 X10'3 (1.1-4.8); LYMPHOCYTES % (AUTO) 17.1 % (21-51); MEAN CORPUSCULAR HEMOGLOBIN 33.8 PG (27.0-31.0); MEAN CORPUSCULAR VOLUME 99.5 FL (78-98); MEAN PLATELET VOLUME 7.8 FL (7.4-10.4); MONOCYTES # (AUTO) 0.3 X10'3 (0-0.9); NEUTROPHILS % (AUTO) 76.8 % (42-75); PLATELET COUNT 65 X10'3 (140-440); RED BLOOD COUNT 3.81 X10'6 (4.70-6.10); RED CELL DISTRIBUTION WIDTH 14.1 % (11.5-14.5); WHITE BLOOD COUNT 6.5 X10'3 (4.5-11.0)
--- NOTE | 2022-12-11 06:19 | NUR ---
Problems reprioritized. Patient report given, questions answered & plan of care reviewed with CATINA Larios.
[2022-12-11 06:21] LABS: ALANINE AMINOTRANSFERASE 101 U/L (12-78); ALBUMIN 3.8 G/DL (3.4-5.0); ALBUMIN/GLOBULIN RATIO 1.1 (1.1-1.5); ALKALINE PHOSPHATASE 77 IU/L (46-116); ANION GAP 13 (8-16); ASPARTATE AMINO TRANSFERASE 121 U/L (10-37); BILIRUBIN,TOTAL 1.7 MG/DL (0.1-1.0); BLOOD UREA NITROGEN 8 MG/DL (7-18); BUN/CREATININE RATIO 8.3 (10.0-20.0); CALCIUM 9.4 MG/DL (8.5-10.1); CHLORIDE 94 MMOL/L (99-107); CHOL/HDL RATIO 2.3 (0.00-4.99); CHOLESTEROL 238 MG/DL (0-200); CREATININE 0.96 MG/DL (0.60-1.10); GLUCOSE 95 MG/DL (70-104); HDL CHOLESTEROL 104 MG/DL (35-60); LDL CHOLESTEROL 100 MG/DL (50-100); POTASSIUM 3.5 MMOL/L (3.5-5.1); SODIUM 134 MMOL/L (135-145); TOTAL CARBON DIOXIDE 27.3 MMOL/L (24-32); TOTAL PROTEIN 7.3 G/DL (6.4-8.2); TRIGLYCERIDES 56 MG/DL (20-135); eGFR > 90 ML/MIN
--- NOTE | 2022-12-11 06:30 | NUR ---
Received report from CATINA Zarco
[2022-12-11] MEDS: K and/or MAG REPLACEMENT MC SCH ×2 (08:00→20:00)
[2022-12-11] MEDS: docusate sod 100mg capsule PO SCH ×2 (08:03→19:37)
[2022-12-11] MEDS: thiamine 100mg/ml 2ml inj. IV SCH ×3 (08:03→19:39)
[2022-12-11] MEDS: folic acid 1mg/0.2ml inj IV SCH (08:03)
[2022-12-11] MEDS: nicotine 21mg patch - 24 hr TD SCH (08:04)
[2022-12-11] MEDS: HYDROcodone/acetaminophen 10/325mg tab PO PRN ×3 (08:04→19:38)
[2022-12-11] MEDS: dextrose 5%-1/2 normal saline 1,000 ML IV SCH ×2 (09:45→22:46)
--- NOTE | 2022-12-11 15:53 | NUR ---
Report called to CATINA Vu
--- NOTE | 2022-12-11 17:06 | NUR ---
Message: Bridget Willis [id number]: [id number] Alyssa did you want patient to be on a Tele Monitor ? Please call Transaction number: [id number] Addendum: 12/11/22 at 1732 by Bridget Nuñez RN Per Dr mSallwood no need for Tele Monitor on patient
--- NOTE | 2022-12-11 17:37 | NUR ---
Transferred patient to room 4022A at 1630 in wheelchair with all belongings: shirt and phone.
--- NOTE | 2022-12-11 19:22 | NUR ---
Patient in room ORTHO 4022. I have received report from CATINA HUSTON and had the opportunity to ask questions and assume patient care.
[2022-12-11] MEDS: enoxaparin 40mg/0.4ml syringe SUBCUT SCH ×2 (22:10→22:11)
[2022-12-11] MEDS ORDERED: pantoprazole 40MG/NS 100ML BAG 100 ML IV SCH (22:15)
--- NOTE | 2022-12-11 22:38 | NUR ---
DR ANN NOTIFIED OF PLATELET 65. DR ADVISED TO HOLD LOVENOX.
[2022-12-12] MEDS: LORazepam 2 mg/ml vial IV PRN ×2 (02:32→11:36)
[2022-12-12 06:00] VITALS: BP 123/84
[2022-12-12 06:04] LABS: BASOPHILS % (AUTO) 0.5 % (0-1); EOSINOPHILS # (AUTO) 0.1 X10'3 (0-0.9); EOSINOPHILS % (AUTO) 1.7 % (0-6); HEMATOCRIT 41.2 % (42.0-52.0); LYMPHOCYTES # (AUTO) 0.6 X10'3 (1.1-4.8); LYMPHOCYTES % (AUTO) 11.8 % (21-51); MEAN CORPUSCULAR HEMOGLOBIN 34.1 PG (27.0-31.0); MEAN CORPUSCULAR VOLUME 100.5 FL (78-98); MEAN PLATELET VOLUME 8.3 FL (7.4-10.4); MONOCYTES # (AUTO) 0.2 X10'3 (0-0.9); MONOCYTES % (AUTO) 4.1 % (2-12); NEUTROPHILS # (AUTO) 4.2 X10'3 (1.8-7.7); NEUTROPHILS % (AUTO) 81.9 % (42-75); PLATELET COUNT 51 X10'3 (140-440); WHITE BLOOD COUNT 5.2 X10'3 (4.5-11.0)
[2022-12-12 06:22] LABS: ALANINE AMINOTRANSFERASE 194 U/L (12-78); ALBUMIN 3.9 G/DL (3.4-5.0); ALBUMIN/GLOBULIN RATIO 1.1 (1.1-1.5); ALKALINE PHOSPHATASE 82 IU/L (46-116); ANION GAP 9 (8-16); ASPARTATE AMINO TRANSFERASE 320 U/L (10-37); BILIRUBIN,TOTAL 1.3 MG/DL (0.1-1.0); BLOOD UREA NITROGEN 5 MG/DL (7-18); BUN/CREATININE RATIO 6.5 (10.0-20.0); CALCIUM 9.8 MG/DL (8.5-10.1); CHLORIDE 95 MMOL/L (99-107); CREATININE 0.77 MG/DL (0.60-1.10); GLUCOSE 119 MG/DL (70-104); MAGNESIUM 1.5 MG/DL (1.5-2.4); PHOSPHORUS 3.3 MG/DL (2.3-4.5); POTASSIUM 3.1 MMOL/L (3.5-5.1); SODIUM 135 MMOL/L (135-145); TOTAL CARBON DIOXIDE 31.1 MMOL/L (24-32); TOTAL PROTEIN 7.5 G/DL (6.4-8.2); eGFR > 90 ML/MIN
--- NOTE | 2022-12-12 06:26 | NUR ---
Problems reprioritized. Patient report given, questions answered & plan of care reviewed with CATINA JUAN.
--- NOTE | 2022-12-12 06:50 | NUR ---
Patient in room ORTHO 4022. I have received report from Jenna and had the opportunity to ask questions and assume patient care.
--- NOTE | 2022-12-12 06:56 | NUR ---
AGREED WITH ELVIS DUPONT RN
[2022-12-12 08:00] VITALS: BP 121/78
[2022-12-12] MEDS ORDERED: pantoprazole 40MG/NS 100ML BAG 100 ML IV SCH (08:00)
[2022-12-12] MEDS: K and/or MAG REPLACEMENT MC SCH (08:00)
[2022-12-12] MEDS: dextrose 5%-1/2 normal saline 1,000 ML IV SCH ×2 (08:42→15:45)
[2022-12-12] MEDS: docusate sod 100mg capsule PO SCH (08:42)
[2022-12-12] MEDS: thiamine 100mg/ml 2ml inj. IV SCH ×2 (08:42→13:42)
[2022-12-12] MEDS: nicotine 21mg patch - 24 hr TD SCH (08:43)
[2022-12-12] MEDS: folic acid 1mg/0.2ml inj IV SCH (09:57)
[2022-12-12] MEDS: HYDROcodone/acetaminophen 10/325mg tab PO PRN (10:09)
[2022-12-12 12:10] VITALS: BP 123/85
[2022-12-12] MEDS ORDERED: THIA50TA10 PO (13:07)
[2022-12-12] MEDS ORDERED: MULT-1074 PO (13:07)
[2022-12-12] MEDS ORDERED: FOLI1TAB27 PO (13:07)
[2022-12-12] MEDS ORDERED: MAGN400C PO (13:07)
[2022-12-12] MEDS ORDERED: POTA-207 PO (13:07)
[2022-12-12] MEDS ORDERED: LORA-269 PO (13:07)
[2022-12-12] MEDS ORDERED: PANT40TA54 PO (13:07)
--- NOTE | 2022-12-12 13:23 | NUR ---
RE: 4022A, 1st dose potassium given, 40mg Marlene
[2022-12-12] MEDS ORDERED: potassium Cl 20 mEq SR tablet PO STA (15:22)
--- NOTE | 2022-12-12 18:21 | NUR ---
Patient received potassium replacements. Lab draw scheduled but draw was late. Patient refused to wait for the results. Patient stated he had rides 4 times today but he did not advise any staff members. Reviewed discharge instructions and medications with patient. Patient verbalized understanding. Patient was able to dress himself, sign the discharge orders and walk unassisted to the elevator with this procedure writer. Patient stated he had a ride waiting for him downstairs. Advised patient of the floor he was on and directions on how to get out front to be driven home by his ride.
[2022-12-14] MEDS ORDERED: thiamine 100mg tablet PO SCH (08:00)
[2022-12-14] MEDS ORDERED: folic acid 1mg tablet PO SCH (08:00)
== END 2022-12-12 18:26 | disposition home or self-care (01) | DRG 253 ==
LOC: ER 20:32 → ED HOLD 12-10 03:48 → ICU 2S 12-10 17:04 → ORTHO 4S 12-11 16:45
PROVIDERS: ADMIT Family Medicine; ATTEND Internal Medicine
DX: K92.0 Hematemesis (principal); D69.6 Thrombocytopenia, unspecified; E87.29 Other acidosis; K92.1 Melena; K70.9 Alcoholic liver disease, unspecified; K29.00 Acute gastritis without bleeding; F10.229 Alcohol dependence with intoxication, unspecified; F41.9 Anxiety disorder, unspecified; F10.230 Alcohol dependence with withdrawal, uncomplicated; F12.10 Cannabis abuse, uncomplicated; G40.909 Epilepsy, unspecified, not intractable, without status epilepticus; I10 Essential (primary) hypertension; Z72.0 Tobacco use; Z79.899 Other long term (current) drug therapy; Z71.51 Drug abuse counseling and surveillance of drug abuser; Z71.41 Alcohol abuse counseling and surveillance of alcoholic; Z71.6 Tobacco abuse counseling
CPT/HCPCS: 36415; 71045; 74176; 80053; 80061; 80305; 80320; 81001; 82140; 82272; 82948; 83036; 83690; 83735; 83880; 84100; 84132; 84443; 85025; 85610; 85730; 86885; 86900; 86901; 87081; 93005; 99285; C9113; G0378; J2060; J2405; J2765; J3411; J3475; J3490; J7030

== ENCOUNTER 2023-02-06 14:05 | Emergency (ER) | payer MEDICAID ==
[~2023-02-06] VITALS: Ht 172.7 cm; Wt 56.0 kg
[~2023-02-06 14:05] MED LIST changes: -CHLO25CA10 PO; +LORA-269 PO; +MAGN400C PO; +MULT-1074 PO; -ONDA4TAB12 PO; +PANT40TA54 PO; -PHEN97.22 PO; -POTA-207 PO; -THIA100T70 PO; +THIA50TA10 PO
[2023-02-06 15:39] LABS: BASOPHILS % (AUTO) 0.6 % (0-1); EOSINOPHILS % (AUTO) 0.5 % (0-6); HEMOGLOBIN 12.7 g/dl (14.0-17.9); LYMPHOCYTES # (AUTO) 0.7 X10'3 (1.1-4.8); MEAN CORPUSCULAR HEMOGLOBIN 34.7 PG (27.0-31.0); MEAN CORPUSCULAR HGB CONC 34.4 g/dL (33.0-36.5); MEAN CORPUSCULAR VOLUME 100.9 FL (78-98); MEAN PLATELET VOLUME 7.9 FL (7.4-10.4); MONOCYTES % (AUTO) 15.4 % (2-12); NEUTROPHILS # (AUTO) 4.6 X10'3 (1.8-7.7); NEUTROPHILS % (AUTO) 72.5 % (42-75); PLATELET COUNT 124 X10'3 (140-440); RED BLOOD COUNT 3.67 X10'6 (4.70-6.10); RED CELL DISTRIBUTION WIDTH 13.4 % (11.5-14.5); WHITE BLOOD COUNT 6.3 X10'3 (4.5-11.0)
[2023-02-06 15:49] LABS: ALANINE AMINOTRANSFERASE 149 U/L (12-78); ALBUMIN 3.9 G/DL (3.4-5.0); ALBUMIN/GLOBULIN RATIO 1.1 (1.1-1.5); ALKALINE PHOSPHATASE 81 IU/L (46-116); ANION GAP 8 (8-16); ASPARTATE AMINO TRANSFERASE 210 U/L (10-37); BILIRUBIN,TOTAL 0.5 MG/DL (0.1-1.0); BLOOD UREA NITROGEN 7 MG/DL (7-18); BUN/CREATININE RATIO 10.1 (10.0-20.0); CALCIUM 9.7 MG/DL (8.5-10.1); CHLORIDE 97 MMOL/L (99-107); CREATININE 0.69 MG/DL (0.60-1.10); GLUCOSE 132 MG/DL (70-104); LIPASE < 50 U/L (73-393); SODIUM 135 MMOL/L (135-145); TOTAL CARBON DIOXIDE 30.4 MMOL/L (24-32); TOTAL PROTEIN 7.5 G/DL (6.4-8.2); eGFR > 90 ML/MIN
[2023-02-06 15:53] LABS: POTASSIUM 2.3 MMOL/L (3.5-5.1)
[2023-02-06 16:24] LABS: CLARITY,URINE CLEAR (Clear); COLOR,URINE YELLOW (Yellow); GLUCOSE, URINE NEGATIVE (Neg); KETONES,URINE NEGATIVE (Neg); LEUKOCYTE ESTERASE ,URINE TRACE (Neg); NITRITES, URINE NEGATIVE (Neg); OCCULT BLOOD,URINE NEGATIVE (Neg); PROTEIN,URINE NEGATIVE (Neg); UROBILINOGEN,URINE 0.2 E.U/dL (0.2-1.0)
[2023-02-06 16:35] LABS: UA COLLECTION TYPE CLN CATCH MIDSTREAM
[2023-02-06 16:37] LABS: SQUAMOUS EPITHELIAL CELL,UR FEW /LPF (FEW)
[2023-02-06 16:38] LABS: RBC,URINE NONE SEEN /HPF (0-2); WBC,URINE 0-4 /HPF (0-4)
[2023-02-06 16:39] LABS: BACTERIA,URINE FEW /HPF (Neg)
[2023-02-06 17:10] VITALS: BP 126/81; PULSE 90; RESP 20; TEMP 97.1; O2SAT 99
[2023-02-06] MEDS ORDERED: potassium Cl 20 mEq SR tablet PO STA (17:13)
[2023-02-06] MEDS ORDERED: LORazepam 1 MG tablet PO ONE (17:15)
[2023-02-06 17:38] LABS: MAGNESIUM 1.6 MG/DL (1.5-2.4)
[2023-02-06] MEDS ORDERED: ONDA4TAB12 PO ×2 (18:03)
[2023-02-06] MEDS ORDERED: GABA300C PO ×2 (18:03)
[2023-02-06] MEDS ORDERED: LORA-269 PO ×2 (18:03)
[2023-02-06] MEDS ORDERED: POTA-366 PO ×2 (18:05)
[2023-02-07] MEDS ORDERED: CLON0.1T2 PO (19:36)
[2023-02-07] MEDS ORDERED: SUCR1TAB PO (19:36)
[2023-02-07] MEDS ORDERED: FOLI1TAB27 PO (19:36)
[2023-02-07] MEDS ORDERED: LORA-269 PO (19:36)
[2023-02-07] MEDS ORDERED: OMEP20CA16 PO (19:36)
[2023-02-07] MEDS ORDERED: POTA-207 PO (19:36)
[2023-02-07] MEDS ORDERED: HYDR-3686 PO (19:36)
[2023-02-07] MEDS ORDERED: DICY20TA14 PO (19:36)
[2023-02-07] MEDS ORDERED: MULT-1085 PO (19:36)
[2023-02-07] MEDS ORDERED: HYDR-3964 PO (19:36)
[2023-02-07] MEDS ORDERED: GABA300C PO (19:36)
[2023-02-07] MEDS ORDERED: NALT50TA PO (19:36)
[2023-02-07] MEDS ORDERED: MAGN400T56 PO (19:36)
== END 2023-02-06 18:12 | disposition home or self-care (01) ==
LOC: ER 14:08
DX: F10.239 Alcohol dependence with withdrawal, unspecified (principal); F10.229 Alcohol dependence with intoxication, unspecified; Z79.899 Other long term (current) drug therapy; Y90.9 Presence of alcohol in blood, level not specified
CPT/HCPCS: 36415; 80053; 81001; 83690; 83735; 85025; 87088; 99283

== ENCOUNTER 2023-02-06 22:53 | Inpatient (IN) | payer MEDICAID ==
[~2023-02-06] VITALS: Ht 177.8 cm; Wt 63.6 kg
[~2023-02-06 22:53] MED LIST changes: +GABA300C PO; +ONDA4TAB12 PO; +POTA-366 PO
[2023-02-06] MEDS ORDERED: thiamine 100mg/ml 2ml inj. IV ONE (23:40)
[2023-02-06] MEDS ORDERED: LORazepam 2 mg/ml vial IV ONE (23:40)
[2023-02-06] MEDS ORDERED: normal saline 1000ML IV soln IVB ONE (23:40)
[2023-02-07 00:38] LABS: HEMOGLOBIN 12.7 g/dl (14.0-17.9); MEAN CORPUSCULAR HEMOGLOBIN 35.2 PG (27.0-31.0); MEAN CORPUSCULAR VOLUME 100.6 FL (78-98); WHITE BLOOD COUNT 5.8 X10'3 (4.5-11.0)
[2023-02-07 00:40] LABS: BASOPHILS % (AUTO) 0.5 % (0-1); EOSINOPHILS % (AUTO) 0.7 % (0-6); HEMATOCRIT 36.3 % (42.0-52.0); LYMPHOCYTES # (AUTO) 0.9 X10'3 (1.1-4.8); LYMPHOCYTES % (AUTO) 16.1 % (21-51); MEAN PLATELET VOLUME 7.7 FL (7.4-10.4); MONOCYTES % (AUTO) 17.1 % (2-12); NEUTROPHILS # (AUTO) 3.8 X10'3 (1.8-7.7); NEUTROPHILS % (AUTO) 65.6 % (42-75); PLATELET COUNT 137 X10'3 (140-440); RED BLOOD COUNT 3.61 X10'6 (4.70-6.10); RED CELL DISTRIBUTION WIDTH 13.4 % (11.5-14.5)
[2023-02-07 01:00] LABS: ALANINE AMINOTRANSFERASE 154 U/L (12-78); ALBUMIN/GLOBULIN RATIO 1.1 (1.1-1.5); ALKALINE PHOSPHATASE 67 IU/L (46-116); ANION GAP 9 (8-16); ASPARTATE AMINO TRANSFERASE 197 U/L (10-37); BILIRUBIN,TOTAL 0.5 MG/DL (0.1-1.0); BLOOD UREA NITROGEN 5 MG/DL (7-18); BUN/CREATININE RATIO 8.1 (10.0-20.0); CALCIUM 9.9 MG/DL (8.5-10.1); CHLORIDE 98 MMOL/L (99-107); CREATININE 0.62 MG/DL (0.60-1.10); GLUCOSE 107 MG/DL (70-104); LIPASE < 50 U/L (73-393); SODIUM 138 MMOL/L (135-145); TOTAL CARBON DIOXIDE 31.1 MMOL/L (24-32); TOTAL PROTEIN 7.6 G/DL (6.4-8.2); eGFR > 90 ML/MIN
[2023-02-07 01:05] LABS: ACETAMINOPHEN < 2.0 UG/ML (10-30); ETHANOL < 10 MG/DL (<10); POTASSIUM 2.3 MMOL/L (3.5-5.1)
[2023-02-07] MEDS ORDERED: potassium CL 10mEq/100ml bag 100 ML IV SCH (01:15)
[2023-02-07] MEDS ORDERED: magnesium 2GM in 50ml NS 50 ML IV ONE (01:15)
[2023-02-07] MEDS ORDERED: potassium Cl 40MEQ/1/2NS 520ml 520 ML IV ONE (01:25)
--- NOTE | 2023-02-07 01:59 | NUR ---
this is the second time he has crawled out of bed/removed gown. Will migue OLEARY. Put sitter on him.
[2023-02-07] MEDS ORDERED: LORazepam 2 mg/ml vial IV STA (02:06)
--- NOTE | 2023-02-07 02:07 | NUR ---
Dr Coyne informed that the patient crawled out of bed twice. That he continues to try and continues to hallucinate. Ordered ativan per MD order.
[2023-02-07] MEDS ORDERED: diphenhydrAMINE 50 mg/ml inj IV PRN (02:15)
[2023-02-07] MEDS ORDERED: ondansetron/PF 4mg/2ml inj IV PRN (02:15)
[2023-02-07] MEDS ORDERED: potassium Cl 20 mEq SR tablet PO PRN ×2 (02:15)
[2023-02-07] MEDS ORDERED: dextrose 50%-water 50ml dispensing syringe IV PRN (02:15)
[2023-02-07] MEDS ORDERED: magnesium 4gm in 100ml NS 100 ML IV PRN (02:15)
[2023-02-07] MEDS ORDERED: bisacodyl 10mg suppository rectal RC PRN (02:15)
[2023-02-07] MEDS ORDERED: mag hydrox/Alum hydrox/simeth 30ml oral suspension PO PRN (02:15)
[2023-02-07] MEDS ORDERED: diphenhydrAMINE 25mg capsule PO PRN (02:15)
[2023-02-07] MEDS ORDERED: potassium cl 20mEq in 1/2 NS 1,000 ML IV SCH (02:15)
[2023-02-07] MEDS ORDERED: magnesium Cl slow-release 64mg tablet PO PRN (02:15)
[2023-02-07] MEDS ORDERED: magnesium hydroxide 30ml (MOM) UD suspension PO PRN (02:15)
[2023-02-07] MEDS ORDERED: acetaminophen 650mg rectal suppository RC PRN (02:15)
[2023-02-07] MEDS ORDERED: potassium Cl 40MEQ/1/2NS 520ml 520 ML IV PRN (02:15)
[2023-02-07] MEDS ORDERED: acetaminophen 325mg tablet PO PRN ×2 (02:15)
[2023-02-07] MEDS ORDERED: ondansetron 4mg rapidly disintigrating tab PO PRN (02:15)
[2023-02-07] MEDS ORDERED: morphine 2 MG/ML inj. syringe IV PRN (02:15)
[2023-02-07] MEDS ORDERED: magnesium 2GM in 50ml NS 50 ML IV PRN (02:15)
[2023-02-07] MEDS: LORazepam 2 mg/ml vial IV PRN ×8 (02:38→16:52)
[2023-02-07] MEDS: haloperidol lactate 5mg/ml inj IM PRN ×3 (02:38→08:42)
--- NOTE | 2023-02-07 02:38 | NUR ---
pt continues to remove leads, take off spo2 monitor at one point biting the spo2 monitor.
--- NOTE | 2023-02-07 02:48 | NUR ---
pt drinking some water
[2023-02-07 02:50] LABS: CREATINE KINASE 76 U/L (39-308); MAGNESIUM 1.6 MG/DL (1.5-2.4); PHOSPHORUS 1.6 MG/DL (2.3-4.5)
--- NOTE | 2023-02-07 02:56 | NUR ---
He continues to hallucinate, pull off his leads/blanket and talking non-sense. More ativan given.
[2023-02-07 03:15] LABS: URINE AMPHETAMINE SCREEN NEGATIVE (Neg); URINE BARBITUATE SCREEN NEGATIVE (Neg); URINE BENZODIAZEPINES SCREEN NEGATIVE (Neg); URINE CANNABINOID SCREEN POSITIVE (Neg); URINE COCAINE SCREEN NEGATIVE (Neg); URINE METHADONE SCREEN NEGATIVE (Neg); URINE OPIATE SCREEN NEGATIVE (Neg); URINE PHENCYCLIDINE SCREEN NEGATIVE (Neg)
[2023-02-07] MEDS: diazepam inj 5 MG/ML inj. IV PRN ×2 (03:20→04:18)
--- NOTE | 2023-02-07 04:01 | NUR ---
He continues to work against the restraints, non directable. Will candyar out a emmanuelle's name "Darlyn"
--- NOTE | 2023-02-07 04:54 | NUR ---
pt continues to wiggle against the restraints, constant movement. Nonsensical speaking. Can not redirect. Medicated. Continues to be on all monitors.
--- NOTE | 2023-02-07 05:04 | NUR ---
spoke to Dr Bautista about patients' condition, what meds have all been given and what this leader writer is seeing. He instructed me to give valium 10 mg IV now and than if that doesn't work to order phenobarbitol.
[2023-02-07] MEDS ORDERED: diazepam inj 5 MG/ML inj. IV STA (05:05)
--- NOTE | 2023-02-07 05:18 | NUR ---
s/p valium 10 mg IV he finally fell asleep.
[2023-02-07] MEDS ORDERED: phenobarbital inj 130 MG in normal saline 100ml IV soln 99 ML IV STA (05:38)
--- NOTE | 2023-02-07 05:38 | NUR ---
he is moving around again, will order the phenobarbitol.
[2023-02-07] MEDS ORDERED: sodium phosphate inj. 15 MMOL in dextrose 5%-water 250 ML IV PRN (06:30)
[2023-02-07] MEDS ORDERED: sodium phosphate inj. 30 MMOL in dextrose 5%-water 250 ML IV PRN (06:30)
[2023-02-07] MEDS ORDERED: Neutra Phos packet PO PRN (06:30)
[2023-02-07] MEDS: folic acid 1mg/0.2ml inj IV SCH (07:38)
[2023-02-07] MEDS: pantoprazole 40mg Tablet.DR PO SCH (07:38)
[2023-02-07] MEDS: thiamine 100mg/ml 2ml inj. IV SCH ×3 (07:39→21:15)
[2023-02-07 07:40] LABS: APTT 27 SECONDS (22-32)
[2023-02-07] MEDS ORDERED: docusate sod 100mg capsule PO SCH (08:00)
[2023-02-07] MEDS: heparin, porcine 5000 units/ml vial SQ SCH ×2 (08:00→21:15)
[2023-02-07] MEDS: K and/or MAG REPLACEMENT MC SCH ×2 (08:09→21:00)
[2023-02-07 09:03] LABS: ALANINE AMINOTRANSFERASE 178 U/L (12-78); ALBUMIN 3.6 G/DL (3.4-5.0); ALBUMIN/GLOBULIN RATIO 1.1 (1.1-1.5); ALKALINE PHOSPHATASE 68 IU/L (46-116); ANION GAP 9 (8-16); ASPARTATE AMINO TRANSFERASE 258 U/L (10-37); BILIRUBIN,TOTAL 0.7 MG/DL (0.1-1.0); BLOOD UREA NITROGEN 4 MG/DL (7-18); BUN/CREATININE RATIO 6.1 (10.0-20.0); CALCIUM 8.7 MG/DL (8.5-10.1); CHLORIDE 100 MMOL/L (99-107); CREATININE 0.66 MG/DL (0.60-1.10); GLUCOSE 112 MG/DL (70-104); SODIUM 139 MMOL/L (135-145); TOTAL CARBON DIOXIDE 29.7 MMOL/L (24-32); TOTAL PROTEIN 6.9 G/DL (6.4-8.2); eGFR > 90 ML/MIN
[2023-02-07 09:12] LABS: POTASSIUM 2.8 MMOL/L (3.5-5.1)
--- NOTE | 2023-02-07 09:17 | NUR ---
Patient is back from CT and out of restraints at this time. Trial out of restraints
[2023-02-07] MEDS: Potassium Cl inj 20 MEQ in normal saline 1000ml 990 ML IV SCH ×2 (10:25→21:30)
[2023-02-07] MEDS ORDERED: LORazepam 2 mg/ml vial IV PRN (10:25)
[2023-02-07 11:06] LABS: MAGNESIUM 1.8 MG/DL (1.5-2.4)
--- NOTE | 2023-02-07 12:16 | NUR ---
Received order for consult. Tried to talk to patient and he would not wake up. I will try again.
--- NOTE | 2023-02-07 12:29 | NUR ---
Patient out of bed and assisted with urinal. Patient changed linens and placed back on CR and SPO2 monitoring.
--- NOTE | 2023-02-07 13:29 | NUR ---
Maisha [phone] Fiance of patient
--- NOTE | 2023-02-07 15:41 | NUR ---
Patient sleeping comfortably on stretcher at this time. in NAD
--- NOTE | 2023-02-07 15:44 | NUR ---
Current CIWA Score 20 (moderate withdrawl) Noted with diaphoresis, pale, moderate tremors while awake, not oriented x4. Vital signs remain stable at this time and currently off restraints since 0900.
--- NOTE | 2023-02-07 18:13 | NUR ---
Girlfriend sitting in his room in the chair at the end of the bed completely naked. Security notified. She was told to get dressed and leave. She said she was trying to comfort him. Informed her that this is inappropriate in a public establishment.
--- NOTE | 2023-02-07 18:15 | NUR ---
notifying [employer] for indecent exposure.
--- NOTE | 2023-02-07 18:21 | NUR ---
spoke to [place], they will have an officer contact me. This female is currently in room 17 with security.
[2023-02-07] MEDS ORDERED: CLON0.1T2 PO (19:36)
[2023-02-07] MEDS ORDERED: SUCR1TAB PO (19:36)
[2023-02-07] MEDS ORDERED: FOLI1TAB27 PO (19:36)
[2023-02-07] MEDS ORDERED: HYDR-3686 PO (19:36)
[2023-02-07] MEDS ORDERED: HYDR-3964 PO (19:36)
[2023-02-07] MEDS ORDERED: OMEP20CA16 PO (19:36)
[2023-02-07] MEDS ORDERED: MULT-1085 PO (19:36)
[2023-02-07] MEDS ORDERED: LORA-269 PO (19:36)
[2023-02-07] MEDS ORDERED: MAGN400T56 PO (19:36)
[2023-02-07] MEDS ORDERED: GABA300C PO (19:36)
[2023-02-07] MEDS ORDERED: DICY20TA14 PO (19:36)
[2023-02-07] MEDS ORDERED: POTA-207 PO (19:36)
[2023-02-07] MEDS ORDERED: NALT50TA PO (19:36)
[2023-02-07] MEDS ORDERED: temazepam 15mg capsule PO PRN (21:00)
[2023-02-08] VITALS (8 sets, daily range): BP systolic 115–150; BP diastolic 80–101; PULSE 69–85; RESP 16–19; TEMP 97.4–98.7; O2SAT 96–100
[2023-02-08] MEDS: HYDROcodone/acetaminophen 5mg/325mg tablet PO PRN ×4 (02:01→20:11)
--- NOTE | 2023-02-08 06:33 | NUR ---
Problems reprioritized. Patient report given, questions answered & plan of care reviewed with Vicki DOMINIQUE.
[2023-02-08 06:35] LABS: EOSINOPHILS # (AUTO) 0.1 X10'3 (0-0.9); EOSINOPHILS % (AUTO) 2.7 % (0-6); HEMATOCRIT 34.9 % (42.0-52.0); LYMPHOCYTES % (AUTO) 21.9 % (21-51); MEAN CORPUSCULAR HGB CONC 34.3 g/dL (33.0-36.5); MEAN CORPUSCULAR VOLUME 102.1 FL (78-98); MEAN PLATELET VOLUME 7.4 FL (7.4-10.4); MONOCYTES # (AUTO) 0.8 X10'3 (0-0.9); MONOCYTES % (AUTO) 16.9 % (2-12); NEUTROPHILS # (AUTO) 2.7 X10'3 (1.8-7.7); NEUTROPHILS % (AUTO) 57.5 % (42-75); PLATELET COUNT 165 X10'3 (140-440); RED BLOOD COUNT 3.41 X10'6 (4.70-6.10); RED CELL DISTRIBUTION WIDTH 13.3 % (11.5-14.5); WHITE BLOOD COUNT 4.6 X10'3 (4.5-11.0)
[2023-02-08 06:58] LABS: ALANINE AMINOTRANSFERASE 311 U/L (12-78); ALBUMIN 3.3 G/DL (3.4-5.0); ALBUMIN/GLOBULIN RATIO 1.1 (1.1-1.5); ALKALINE PHOSPHATASE 64 IU/L (46-116); ANION GAP 7 (8-16); ASPARTATE AMINO TRANSFERASE 432 U/L (10-37); BILIRUBIN,TOTAL 0.7 MG/DL (0.1-1.0); BLOOD UREA NITROGEN 5 MG/DL (7-18); BUN/CREATININE RATIO 8.2 (10.0-20.0); CALCIUM 8.5 MG/DL (8.5-10.1); CHLORIDE 103 MMOL/L (99-107); CHOL/HDL RATIO 3.6 (0.00-4.99); CHOLESTEROL 148 MG/DL (0-200); CREATININE 0.61 MG/DL (0.60-1.10); GLUCOSE 90 MG/DL (70-104); HDL CHOLESTEROL 41 MG/DL (35-60); LDL CHOLESTEROL 69 MG/DL (50-100); POTASSIUM 3.5 MMOL/L (3.5-5.1); SODIUM 139 MMOL/L (135-145); TOTAL CARBON DIOXIDE 29.3 MMOL/L (24-32); TOTAL PROTEIN 6.3 G/DL (6.4-8.2); TRIGLYCERIDES 96 MG/DL (20-135); eGFR > 90 ML/MIN
[2023-02-08] MEDS: folic acid 1mg/0.2ml inj IV SCH (08:00)
[2023-02-08] MEDS: K and/or MAG REPLACEMENT MC SCH ×2 (08:00→20:00)
[2023-02-08] MEDS: LORazepam 2 mg/ml vial IV PRN ×3 (08:14→15:10)
[2023-02-08] MEDS: thiamine 100mg/ml 2ml inj. IV SCH ×3 (08:14→20:11)
[2023-02-08] MEDS: pantoprazole 40mg Tablet.DR PO SCH (08:15)
[2023-02-08] MEDS: heparin, porcine 5000 units/ml vial SQ SCH ×2 (08:15→20:15)
[2023-02-08] MEDS: potassium Cl 20mEq in NS 1,000 ML IV SCH ×3 (09:46→22:18)
[2023-02-08] MEDS ORDERED: LORazepam 2 mg/ml vial IV PRN (10:55)
[2023-02-09 02:00] VITALS: BP 132/97; PULSE 80; RESP 16; TEMP 97.9; O2SAT 100
[2023-02-09] MEDS: HYDROcodone/acetaminophen 5mg/325mg tablet PO PRN (02:34)
[2023-02-09 06:00] VITALS: BP 128/85; PULSE 86; RESP 15; TEMP 97.6; O2SAT 100
[2023-02-09 06:34] LABS: BASOPHILS # (AUTO) 0.1 X10'3 (0-0.2); BASOPHILS % (AUTO) 0.9 % (0-1); EOSINOPHILS # (AUTO) 0.1 X10'3 (0-0.9); EOSINOPHILS % (AUTO) 1.9 % (0-6); HEMATOCRIT 36.1 % (42.0-52.0); HEMOGLOBIN 12.2 g/dl (14.0-17.9); LYMPHOCYTES # (AUTO) 1.1 X10'3 (1.1-4.8); LYMPHOCYTES % (AUTO) 19.2 % (21-51); MEAN CORPUSCULAR HEMOGLOBIN 34.7 PG (27.0-31.0); MEAN CORPUSCULAR HGB CONC 33.8 g/dL (33.0-36.5); MEAN CORPUSCULAR VOLUME 102.5 FL (78-98); MONOCYTES # (AUTO) 1.2 X10'3 (0-0.9); MONOCYTES % (AUTO) 21.7 % (2-12); NEUTROPHILS # (AUTO) 3.2 X10'3 (1.8-7.7); NEUTROPHILS % (AUTO) 56.3 % (42-75); PLATELET COUNT 234 X10'3 (140-440); RED BLOOD COUNT 3.52 X10'6 (4.70-6.10); RED CELL DISTRIBUTION WIDTH 13.4 % (11.5-14.5); WHITE BLOOD COUNT 5.6 X10'3 (4.5-11.0)
[2023-02-09 06:47] LABS: ALANINE AMINOTRANSFERASE 221 U/L (12-78); ALBUMIN 3.2 G/DL (3.4-5.0); ALBUMIN/GLOBULIN RATIO 1.1 (1.1-1.5); ALKALINE PHOSPHATASE 70 IU/L (46-116); ANION GAP 4 (8-16); ASPARTATE AMINO TRANSFERASE 182 U/L (10-37); BILIRUBIN,TOTAL 0.4 MG/DL (0.1-1.0); BLOOD UREA NITROGEN 4 MG/DL (7-18); BUN/CREATININE RATIO 6.3 (10.0-20.0); CALCIUM 8.9 MG/DL (8.5-10.1); CHLORIDE 104 MMOL/L (99-107); CREATININE 0.63 MG/DL (0.60-1.10); GLUCOSE 123 MG/DL (70-104); POTASSIUM 3.7 MMOL/L (3.5-5.1); SODIUM 140 MMOL/L (135-145); TOTAL CARBON DIOXIDE 31.8 MMOL/L (24-32); TOTAL PROTEIN 6.2 G/DL (6.4-8.2); eGFR > 90 ML/MIN
--- NOTE | 2023-02-09 06:50 | NUR ---
Patient in room PCU 3013. I have received report from CATINA Stevens and had the opportunity to ask questions and assume patient care.
--- NOTE | 2023-02-09 06:51 | NUR ---
Problems reprioritized. Patient report given, questions answered & plan of care reviewed with Adina
[2023-02-09] MEDS: K and/or MAG REPLACEMENT MC SCH (08:00)
[2023-02-09 09:08] LABS: HBSAG SCREEN Negative (Negative); HEP B CORE AB, TOT Negative (Negative)
[2023-02-09 10:15] VITALS: RESP 16; O2SAT 100
[2023-02-09] MEDS: folic acid 1mg/0.2ml inj IV SCH (10:25)
[2023-02-09] MEDS: heparin, porcine 5000 units/ml vial SQ SCH (10:27)
[2023-02-09] MEDS: thiamine 100mg/ml 2ml inj. IV SCH ×2 (10:27→12:59)
[2023-02-09 11:00] VITALS: BP 146/96; PULSE 88; RESP 16; TEMP 98.2; O2SAT 99
[2023-02-09] MEDS: potassium Cl 20mEq in NS 1,000 ML IV SCH (11:56)
[2023-02-09] MEDS ORDERED: HYDR-3686 PO (12:52)
[2023-02-09] MEDS ORDERED: CITA-124 PO (12:52)
[2023-02-09] MEDS ORDERED: PANT40TA54 PO (12:52)
[2023-02-09] MEDS ORDERED: NALT50TA PO (12:52)
[2023-02-09] MEDS ORDERED: cloNIDine 0.1 mg tablet PO SCH (13:00)
--- NOTE | 2023-02-09 16:45 | NUR ---
DC inst provided to pt. IV DC'd, tip intact. All belongings sent w/pt. Pt ambulated to vehicle.
[2023-02-09] MEDS ORDERED: folic acid 1mg tablet PO SCH (20:00)
[2023-02-10] MEDS ORDERED: pantoprazole 40mg Tablet.DR PO SCH (07:30)
[2023-02-10] MEDS ORDERED: citalopram 20mg tablet PO SCH (08:00)
[2023-02-10] MEDS ORDERED: multivitamins, therapeutics tablet PO SCH (08:00)
[2023-02-10] MEDS ORDERED: hydrOXYzine 25 MG tablet PO SCH (08:00)
[2023-02-10] MEDS ORDERED: naltrexone 50mg tablet PO SCH (08:00)
[2023-02-11] MEDS ORDERED: thiamine 100mg tablet PO SCH (08:00)
[2023-02-11] MEDS ORDERED: folic acid 1mg tablet PO SCH (08:00)
== END 2023-02-09 17:03 | disposition home or self-care (01) | DRG 425 ==
LOC: ER 22:53 → ED HOLD 02-07 02:25 → EDBEDREQ 02-07 23:32 → PCU 3S 02-08 01:00
PROVIDERS: ADMIT Family Medicine; ATTEND Internal Medicine
DX: E87.29 Other acidosis (principal); F10.231 Alcohol dependence with withdrawal delirium; D69.6 Thrombocytopenia, unspecified; K70.9 Alcoholic liver disease, unspecified; F32.A Depression, unspecified; D64.9 Anemia, unspecified; E87.6 Hypokalemia; F41.9 Anxiety disorder, unspecified; F12.10 Cannabis abuse, uncomplicated; G40.909 Epilepsy, unspecified, not intractable, without status epilepticus; I10 Essential (primary) hypertension; K76.0 Fatty (change of) liver, not elsewhere classified; Z72.0 Tobacco use; Z79.899 Other long term (current) drug therapy; Z71.41 Alcohol abuse counseling and surveillance of alcoholic; Z71.51 Drug abuse counseling and surveillance of drug abuser; Z71.6 Tobacco abuse counseling
CPT/HCPCS: 36415; 70450; 80053; 80061; 80305; 80320; 80329; 82550; 83690; 83735; 83880; 84100; 84132; 84443; 85025; 85610; 85730; 86704; 86705; 87081; 87340; 97116; 97161; 97530; 99285; A4615; G0378; J1200; J1630; J1644; J2060; J2560; J3360; J3411; J3475; J3480; J3490; J7030

== ENCOUNTER 2023-04-29 17:00 | Emergency (ER) | payer MEDICAID ==
[~2023-04-29] VITALS: Ht 177.8 cm; Wt 80.0 kg
[~2023-04-29 17:00] MED LIST changes: +CITA-124 PO; -GABA300C PO; +HYDR-3686 PO; -LORA-269 PO; -MAGN400C PO; +MAGN400T56 PO; -MULT-1074 PO; +MULT-1085 PO; +NALT50TA PO; -ONDA4TAB12 PO; +POTA-207 PO; -POTA-366 PO; -THIA50TA10 PO
[2023-04-29] MEDS ORDERED: HYDROcodone/acetaminophen 5mg/325mg tablet PO ONE (17:45)
[2023-04-29] MEDS ORDERED: valproate sod inj 500 MG in normal saline 50ml IV soln 50 ML IV ONE (17:45)
[2023-04-29] MEDS ORDERED: valproate sod inj 500 MG in normal saline 50ml IV soln 45 ML IV ONE (17:57)
[2023-04-29] MEDS ORDERED: WATER IV ONE (18:09)
[2023-04-29] MEDS ORDERED: DEXTROSE 5% IV ONE (18:09)
[2023-04-29] MEDS ORDERED: VALPROATE SOD IV ONE (18:09)
[2023-04-29 18:40] LABS: ANION GAP 10 (8-16); CHLORIDE 100 MMOL/L (99-107); GLUCOSE 112 MG/DL (70-104); SODIUM 138 MMOL/L (135-145); TOTAL CARBON DIOXIDE 27.8 MMOL/L (24-32)
[2023-04-29 18:41] LABS: ALANINE AMINOTRANSFERASE 54 U/L (12-78); ALBUMIN 3.6 G/DL (3.4-5.0); ALBUMIN/GLOBULIN RATIO 1.1 (1.1-1.5); ALKALINE PHOSPHATASE 79 IU/L (46-116); ASPARTATE AMINO TRANSFERASE 123 U/L (10-37); BILIRUBIN,TOTAL 1.4 MG/DL (0.1-1.0); BLOOD UREA NITROGEN 8 MG/DL (7-18); BUN/CREATININE RATIO 12.1 (10.0-20.0); CALCIUM 8.6 MG/DL (8.5-10.1); CREATININE 0.66 MG/DL (0.60-1.10); LIPASE 13 U/L (16-77); TOTAL PROTEIN 6.8 G/DL (6.4-8.2); eCRCL 167 ML/MIN; eGFR > 90 ML/MIN
[2023-04-29 18:43] LABS: HEMOGLOBIN 11.4 g/dl (14.0-17.9); MEAN PLATELET VOLUME 8.2 FL (7.4-10.4); RED BLOOD COUNT 3.18 X10'6 (4.70-6.10)
[2023-04-29 18:45] LABS: BASOPHILS % (AUTO) 0.8 % (0-1); EOSINOPHILS % (AUTO) 0.2 % (0-6); HEMATOCRIT 32.4 % (42.0-52.0); LYMPHOCYTES # (AUTO) 0.3 X10'3 (1.1-4.8); LYMPHOCYTES % (AUTO) 6.6 % (21-51); MEAN CORPUSCULAR HGB CONC 35.3 g/dL (33.0-36.5); MEAN CORPUSCULAR VOLUME 101.9 FL (78-98); MONOCYTES # (AUTO) 0.6 X10'3 (0-0.9); MONOCYTES % (AUTO) 12.2 % (2-12); NEUTROPHILS # (AUTO) 4.1 X10'3 (1.8-7.7); NEUTROPHILS % (AUTO) 80.2 % (42-75); PLATELET COUNT 99 X10'3 (140-440); WHITE BLOOD COUNT 5.2 X10'3 (4.5-11.0)
[2023-04-29] MEDS ORDERED: potassium Cl 20 mEq SR tablet PO ONE (18:55)
--- NOTE | 2023-04-29 19:57 | NUR ---
THIS RN AGREES W LVNS ASSESSMENT.
[2023-04-29 20:08] VITALS: BP 119/74; PULSE 102; RESP 18; TEMP 98.6; O2SAT 96
[2023-04-29] MEDS ORDERED: DIVA-81 PO (20:18)
--- NOTE | 2023-04-29 20:18 | NUR ---
no urine provided. aware
--- NOTE | 2023-04-29 20:18 | NUR ---
iv dc'd pt being discharged dressing applied
[2023-04-29] MEDS ORDERED: VALP250C44 PO (20:23)
== END 2023-04-29 20:35 | disposition home or self-care (01) ==
LOC: ER 17:01
DX: G43.909 Migraine, unspecified, not intractable, without status migrainosus (principal); Z79.899 Other long term (current) drug therapy
CPT/HCPCS: 36415; 80053; 83690; 85025; 93005; 96365; 99284; J3490; J7060

== ENCOUNTER 2023-08-30 14:17 | Inpatient (IN) | payer MEDICAID ==
[~2023-08-30] VITALS: Ht 177.8 cm; Wt 65.9 kg
[~2023-08-30 14:17] MED LIST changes: +VALP250C44 PO
[2023-08-30] MEDS ORDERED: gabapentin 400mg capsule PO STA (15:59)
[2023-08-30] MEDS: normal saline 1000ML IV soln IVB ONE (16:32)
[2023-08-30 16:38] LABS: BASOPHILS # (AUTO) 0.1 X10'3 (0-0.2); BASOPHILS % (AUTO) 1.2 % (0-1); EOSINOPHILS % (AUTO) 0.3 % (0-6); HEMATOCRIT 33.4 % (42.0-52.0); HEMOGLOBIN 11.7 g/dl (14.0-17.9); LYMPHOCYTES # (AUTO) 0.6 X10'3 (1.1-4.8); LYMPHOCYTES % (AUTO) 11.4 % (21-51); MEAN CORPUSCULAR HEMOGLOBIN 36.7 PG (27.0-31.0); MEAN CORPUSCULAR VOLUME 104.9 FL (78-98); MEAN PLATELET VOLUME 7.7 FL (7.4-10.4); MONOCYTES # (AUTO) 0.9 X10'3 (0-0.9); NEUTROPHILS # (AUTO) 3.9 X10'3 (1.8-7.7); NEUTROPHILS % (AUTO) 71.1 % (42-75); PLATELET COUNT 89 X10'3 (140-440); RED BLOOD COUNT 3.18 X10'6 (4.70-6.10); RED CELL DISTRIBUTION WIDTH 13.8 % (11.5-14.5); WHITE BLOOD COUNT 5.4 X10'3 (4.5-11.0)
[2023-08-30] MEDS: gabapentin 300mg capsule PO STA (16:42)
[2023-08-30 17:00] LABS: ALANINE AMINOTRANSFERASE 45 U/L (12-78); ALBUMIN 3.2 G/DL (3.4-5.0); ALBUMIN/GLOBULIN RATIO 0.8 (1.1-1.5); ALKALINE PHOSPHATASE 121 IU/L (46-116); ANION GAP 11 (8-16); ASPARTATE AMINO TRANSFERASE 194 U/L (10-37); BILIRUBIN,TOTAL 1.2 MG/DL (0.1-1.0); BLOOD UREA NITROGEN 6 MG/DL (7-18); BUN/CREATININE RATIO 12.5 (10.0-20.0); CALCIUM 7.6 MG/DL (8.5-10.1); CHLORIDE 102 MMOL/L (99-107); CREATININE 0.48 MG/DL (0.60-1.10); GLUCOSE 95 MG/DL (70-104); LIPASE 11 U/L (16-77); MAGNESIUM 1.4 MG/DL (1.5-2.4); SODIUM 141 MMOL/L (135-145); TOTAL CARBON DIOXIDE 27.7 MMOL/L (24-32); eCRCL 208 ML/MIN; eGFR > 90 ML/MIN
[2023-08-30 17:03] LABS: PLATELET ESTIMATE DECREASED; STOMATOCYTES 1+; TOTAL CELLS COUNTED 100
[2023-08-30 17:22] LABS: POTASSIUM 2.9 MMOL/L (3.5-5.1)
[2023-08-30] MEDS: magnesium 2GM in 50ml NS 50 ML IV SCH (17:42)
[2023-08-30] MEDS: potassium Cl 40MEQ/1/2NS 520ml 520 ML IV ONE (17:43)
[2023-08-30] MEDS ORDERED: potassium Cl 40MEQ/1/2NS 520ml 520 ML IV PRN (17:50)
[2023-08-30] MEDS ORDERED: magnesium 2GM in 50ml NS 50 ML IV PRN (17:50)
[2023-08-30] MEDS ORDERED: dextrose 50%-water 50ml dispensing syringe IV PRN (17:50)
[2023-08-30] MEDS ORDERED: ondansetron/PF 4mg/2ml inj IV PRN (17:50)
[2023-08-30] MEDS: folic acid 1mg/0.2ml inj IV SCH (17:50)
[2023-08-30] MEDS ORDERED: haloperidol 5mg tablet PO PRN (17:50)
[2023-08-30] MEDS ORDERED: haloperidol lactate 5mg/ml inj IM PRN (17:50)
[2023-08-30] MEDS ORDERED: magnesium 4gm in 100ml NS 100 ML IV PRN (17:50)
[2023-08-30] MEDS: normal saline 1000ml 1,000 ML IV SCH (17:50)
[2023-08-30] MEDS ORDERED: potassium Cl 20 mEq SR tablet PO PRN (17:50)
[2023-08-30] MEDS ORDERED: LORazepam 2 mg/ml vial IV PRN (17:50)
[2023-08-30] MEDS: K and/or MAG REPLACEMENT MC SCH (20:00)
[2023-08-30] MEDS: thiamine 100mg/ml 2ml inj. IV SCH (21:29)
[2023-08-31] VITALS (10 sets, daily range): BP systolic 110–159; BP diastolic 54–103; PULSE 75–79; RESP 12–20; TEMP 97.6–98.8; O2SAT 78–100
[2023-08-31] MEDS: acetaminophen 325mg tablet PO PRN (00:56)
[2023-08-31] MEDS ORDERED: acetaminophen 325mg tablet PO PRN (07:25)
[2023-08-31 07:37] LABS: BASOPHILS % (AUTO) 0.7 % (0-1); EOSINOPHILS # (AUTO) 0.1 X10'3 (0-0.9); EOSINOPHILS % (AUTO) 1.1 % (0-6); HEMATOCRIT 32.1 % (42.0-52.0); LYMPHOCYTES # (AUTO) 0.8 X10'3 (1.1-4.8); LYMPHOCYTES % (AUTO) 17.8 % (21-51); MEAN CORPUSCULAR HGB CONC 34.1 g/dL (33.0-36.5); MEAN CORPUSCULAR VOLUME 105.4 FL (78-98); MEAN PLATELET VOLUME 8.2 FL (7.4-10.4); MONOCYTES # (AUTO) 0.8 X10'3 (0-0.9); MONOCYTES % (AUTO) 16.9 % (2-12); NEUTROPHILS % (AUTO) 63.5 % (42-75); PLATELET COUNT 84 X10'3 (140-440); RED BLOOD COUNT 3.05 X10'6 (4.70-6.10); RED CELL DISTRIBUTION WIDTH 13.9 % (11.5-14.5); WHITE BLOOD COUNT 4.7 X10'3 (4.5-11.0)
[2023-08-31 07:42] LABS: INR 1.1 INR; PROTHROMBIN TIME 11.6 SECONDS (9.0-12.0)
[2023-08-31 08:04] LABS: ALANINE AMINOTRANSFERASE 37 U/L (12-78); ALBUMIN 2.9 G/DL (3.4-5.0); ALBUMIN/GLOBULIN RATIO 0.9 (1.1-1.5); ALKALINE PHOSPHATASE 112 IU/L (46-116); AMYLASE 57 U/L (25-115); ANION GAP 10 (8-16); ASPARTATE AMINO TRANSFERASE 151 U/L (10-37); BILIRUBIN,TOTAL 1.6 MG/DL (0.1-1.0); BLOOD UREA NITROGEN 5 MG/DL (7-18); BUN/CREATININE RATIO 10.4 (10.0-20.0); CHLORIDE 105 MMOL/L (99-107); CREATININE 0.48 MG/DL (0.60-1.10); GLUCOSE 86 MG/DL (70-104); LIPASE 11 U/L (16-77); MAGNESIUM 1.9 MG/DL (1.5-2.4); PHOSPHORUS 2.8 MG/DL (2.3-4.5); POTASSIUM 3.4 MMOL/L (3.5-5.1); SODIUM 141 MMOL/L (135-145); TOTAL CARBON DIOXIDE 26.2 MMOL/L (24-32); TOTAL PROTEIN 6.3 G/DL (6.4-8.2); eCRCL 208 ML/MIN; eGFR > 90 ML/MIN
[2023-08-31] MEDS: HYDROcodone/acetaminophen 5mg/325mg tablet PO PRN (09:13)
[2023-08-31] MEDS: LORazepam 2 mg/ml vial IV PRN (09:17)
[2023-08-31] MEDS: potassium Cl 20 mEq SR tablet PO PRN (10:59)
[2023-09-01] VITALS (8 sets, daily range): BP systolic 131–170; BP diastolic 70–102; PULSE 61–91; RESP 16–20; TEMP 97.7–98.6; O2SAT 95–100
[2023-09-01 07:23] LABS: INR 1.2 INR; PROTHROMBIN TIME 12.5 SECONDS (9.0-12.0)
[2023-09-01 07:31] LABS: BASOPHILS # (AUTO) 0.1 X10'3 (0-0.2); EOSINOPHILS # (AUTO) 0.1 X10'3 (0-0.9); EOSINOPHILS % (AUTO) 1.4 % (0-6); HEMATOCRIT 33.7 % (42.0-52.0); HEMOGLOBIN 11.4 g/dl (14.0-17.9); LYMPHOCYTES # (AUTO) 0.8 X10'3 (1.1-4.8); LYMPHOCYTES % (AUTO) 14.8 % (21-51); MEAN PLATELET VOLUME 8.4 FL (7.4-10.4); MONOCYTES % (AUTO) 17.7 % (2-12); NEUTROPHILS # (AUTO) 3.7 X10'3 (1.8-7.7); NEUTROPHILS % (AUTO) 65.1 % (42-75); PLATELET COUNT 117 X10'3 (140-440); RED BLOOD COUNT 3.18 X10'6 (4.70-6.10); RED CELL DISTRIBUTION WIDTH 13.9 % (11.5-14.5); WHITE BLOOD COUNT 5.7 X10'3 (4.5-11.0)
[2023-09-01 07:39] LABS: ALANINE AMINOTRANSFERASE 35 U/L (12-78); ALBUMIN 2.9 G/DL (3.4-5.0); ALBUMIN/GLOBULIN RATIO 0.8 (1.1-1.5); ALKALINE PHOSPHATASE 111 IU/L (46-116); AMYLASE 58 U/L (25-115); ANION GAP 9 (8-16); ASPARTATE AMINO TRANSFERASE 99 U/L (10-37); BILIRUBIN,TOTAL 1.2 MG/DL (0.1-1.0); BLOOD UREA NITROGEN 6 MG/DL (7-18); BUN/CREATININE RATIO 13.3 (10.0-20.0); CALCIUM 8.6 MG/DL (8.5-10.1); CHLORIDE 104 MMOL/L (99-107); CREATININE 0.45 MG/DL (0.60-1.10); GLUCOSE 90 MG/DL (70-104); LIPASE 11 U/L (16-77); MAGNESIUM 1.3 MG/DL (1.5-2.4); PHOSPHORUS 3.9 MG/DL (2.3-4.5); SODIUM 140 MMOL/L (135-145); TOTAL CARBON DIOXIDE 27.1 MMOL/L (24-32); TOTAL PROTEIN 6.4 G/DL (6.4-8.2); eCRCL 222 ML/MIN; eGFR > 90 ML/MIN
[2023-09-01] MEDS: magnesium Cl slow-release 64mg tablet PO PRN (09:42)
[2023-09-01] MEDS: LIDOcaine Viscous 15ml cup MM PRN (15:39)
[2023-09-02] VITALS (7 sets, daily range): BP systolic 130–169; BP diastolic 89–111; PULSE 69–76; RESP 15–18; TEMP 97.1–98.3; O2SAT 93–98
[2023-09-02] MEDS ORDERED: NO HOME MEDS (00:58)
[2023-09-02] MEDS: cloNIDine 0.1 mg tablet PO ONE (01:37)
[2023-09-02] MEDS: LORazepam 2 mg/ml vial IV PRN (05:56)
[2023-09-02 07:11] LABS: BASOPHILS # (AUTO) 0.1 X10'3 (0-0.2); BASOPHILS % (AUTO) 1.1 % (0-1); EOSINOPHILS # (AUTO) 0.1 X10'3 (0-0.9); HEMATOCRIT 35.6 % (42.0-52.0); HEMOGLOBIN 12.1 g/dl (14.0-17.9); MEAN CORPUSCULAR HEMOGLOBIN 36.3 PG (27.0-31.0); MEAN CORPUSCULAR VOLUME 106.6 FL (78-98); MEAN PLATELET VOLUME 8.6 FL (7.4-10.4); MONOCYTES # (AUTO) 1.2 X10'3 (0-0.9); MONOCYTES % (AUTO) 18.4 % (2-12); NEUTROPHILS % (AUTO) 62.5 % (42-75); PLATELET COUNT 165 X10'3 (140-440); RED BLOOD COUNT 3.34 X10'6 (4.70-6.10); RED CELL DISTRIBUTION WIDTH 13.6 % (11.5-14.5); WHITE BLOOD COUNT 6.4 X10'3 (4.5-11.0)
[2023-09-02 07:20] LABS: INR 1.2 INR; PROTHROMBIN TIME 12.4 SECONDS (9.0-12.0)
[2023-09-02 07:31] LABS: ALANINE AMINOTRANSFERASE 41 U/L (12-78); ALBUMIN/GLOBULIN RATIO 0.8 (1.1-1.5); ALKALINE PHOSPHATASE 110 IU/L (46-116); AMYLASE 57 U/L (25-115); ANION GAP 10 (8-16); ASPARTATE AMINO TRANSFERASE 108 U/L (10-37); BLOOD UREA NITROGEN 9 MG/DL (7-18); BUN/CREATININE RATIO 21.4 (10.0-20.0); CALCIUM 8.7 MG/DL (8.5-10.1); CHLORIDE 102 MMOL/L (99-107); CREATININE 0.42 MG/DL (0.60-1.10); GLUCOSE 92 MG/DL (70-104); LIPASE 10 U/L (16-77); MAGNESIUM 1.3 MG/DL (1.5-2.4); PHOSPHORUS 5.3 MG/DL (2.3-4.5); POTASSIUM 3.9 MMOL/L (3.5-5.1); SODIUM 141 MMOL/L (135-145); TOTAL CARBON DIOXIDE 28.7 MMOL/L (24-32); TOTAL PROTEIN 6.7 G/DL (6.4-8.2); eCRCL 238 ML/MIN; eGFR > 90 ML/MIN
[2023-09-02] MEDS: LORazepam 1 MG tablet PO PRN (07:32)
[2023-09-02] MEDS ORDERED: magnesium 4gm in 100ml NS 100 ML IV PRN (16:00)
[2023-09-02] MEDS ORDERED: potassium Cl 40MEQ/1/2NS 520ml 520 ML IV PRN (16:00)
[2023-09-02] MEDS ORDERED: potassium Cl 20 mEq SR tablet PO PRN ×2 (16:00)
[2023-09-02] MEDS ORDERED: magnesium 2GM in 50ml NS 50 ML IV PRN (16:00)
[2023-09-02] MEDS: magnesium Cl slow-release 64mg tablet PO PRN (16:21)
[2023-09-02] MEDS: ibuprofen 200mg tablet PO PRN (19:59)
[2023-09-03 02:21] VITALS: BP 143/96; PULSE 82; RESP 16; TEMP 98.1; O2SAT 98
[2023-09-03 06:12] LABS: BASOPHILS # (AUTO) 0.1 X10'3 (0-0.2); BASOPHILS % (AUTO) 0.9 % (0-1); EOSINOPHILS # (AUTO) 0.1 X10'3 (0-0.9); EOSINOPHILS % (AUTO) 1.2 % (0-6); HEMATOCRIT 34.5 % (42.0-52.0); HEMOGLOBIN 11.8 g/dl (14.0-17.9); LYMPHOCYTES # (AUTO) 0.9 X10'3 (1.1-4.8); MEAN CORPUSCULAR HEMOGLOBIN 36.1 PG (27.0-31.0); MEAN CORPUSCULAR HGB CONC 34.2 g/dL (33.0-36.5); MEAN CORPUSCULAR VOLUME 105.4 FL (78-98); MEAN PLATELET VOLUME 8.5 FL (7.4-10.4); MONOCYTES # (AUTO) 1.4 X10'3 (0-0.9); MONOCYTES % (AUTO) 20.7 % (2-12); NEUTROPHILS # (AUTO) 4.3 X10'3 (1.8-7.7); NEUTROPHILS % (AUTO) 63.2 % (42-75); PLATELET COUNT 203 X10'3 (140-440); RED BLOOD COUNT 3.27 X10'6 (4.70-6.10); RED CELL DISTRIBUTION WIDTH 13.9 % (11.5-14.5); WHITE BLOOD COUNT 6.7 X10'3 (4.5-11.0)
[2023-09-03 06:30] LABS: INR 1.2 INR; PROTHROMBIN TIME 12.4 SECONDS (9.0-12.0)
[2023-09-03 06:37] LABS: ALANINE AMINOTRANSFERASE 55 U/L (12-78); ALBUMIN/GLOBULIN RATIO 0.9 (1.1-1.5); ALKALINE PHOSPHATASE 110 IU/L (46-116); AMYLASE 56 U/L (25-115); ANION GAP 8 (8-16); ASPARTATE AMINO TRANSFERASE 132 U/L (10-37); BILIRUBIN,TOTAL 0.9 MG/DL (0.1-1.0); BLOOD UREA NITROGEN 10 MG/DL (7-18); CALCIUM 9.2 MG/DL (8.5-10.1); CHLORIDE 103 MMOL/L (99-107); GLUCOSE 96 MG/DL (70-104); LIPASE 10 U/L (16-77); MAGNESIUM 1.4 MG/DL (1.5-2.4); PHOSPHORUS 5.3 MG/DL (2.3-4.5); POTASSIUM 4.3 MMOL/L (3.5-5.1); SODIUM 139 MMOL/L (135-145); TOTAL CARBON DIOXIDE 28.2 MMOL/L (24-32); TOTAL PROTEIN 6.5 G/DL (6.4-8.2); eCRCL 200 ML/MIN; eGFR > 90 ML/MIN
[2023-09-03 06:48] LABS: TOTAL CELLS COUNTED 100
[2023-09-03 06:49] LABS: PLATELET ESTIMATE NORMAL
[2023-09-03 08:00] VITALS: BP 156/106; PULSE 110; RESP 18; RESP 20; TEMP 97.2; O2SAT 97
[2023-09-03] MEDS: folic acid 1mg tablet PO SCH (08:21)
[2023-09-03] MEDS: thiamine 100mg tablet PO SCH (08:21)
[2023-09-03 11:06] VITALS: BP 126/81; PULSE 72; RESP 15; TEMP 97; O2SAT 96
[2023-09-03] MEDS ORDERED: thiamine tablet PO (13:08)
[2023-09-03] MEDS ORDERED: FOLI1TAB27 PO (13:08)
[2023-09-03] MEDS ORDERED: LOP12.5T PO (14:42)
[2023-09-03] MEDS ORDERED: LORazepam 1 MG tablet PO PRN (17:50)
== END 2023-09-03 16:02 | disposition home or self-care (01) | DRG 425 ==
LOC: ER 14:18 → ED HOLD 17:58 → EDBEDREQ 19:52 → PCU 3S 23:30
PROVIDERS: ADMIT Internal Medicine; ATTEND Internal Medicine
DX: E87.6 Hypokalemia (principal); F10.231 Alcohol dependence with withdrawal delirium; E83.42 Hypomagnesemia; R03.0 Elevated blood-pressure reading, without diagnosis of hypertension; G40.909 Epilepsy, unspecified, not intractable, without status epilepticus; G43.909 Migraine, unspecified, not intractable, without status migrainosus; F32.A Depression, unspecified; K14.0 Glossitis; Y90.9 Presence of alcohol in blood, level not specified; Z79.899 Other long term (current) drug therapy
CPT/HCPCS: 36415; 80053; 82150; 83690; 83735; 84100; 84132; 85007; 85025; 85610; 87081; 93005; 99285; G0378; J2060; J3411; J3475; J3480; J3490; J7030

== ENCOUNTER 2024-04-17 10:33 | Emergency (ER) | payer MEDICAID ==
[~2024-04-17] VITALS: Ht 180.3 cm; Wt 67.0 kg
[~2024-04-17 10:33] MED LIST changes: -CITA-124 PO; -HYDR-3686 PO; +LOP12.5T PO; -MAGN400T56 PO; -MULT-1085 PO; -NALT50TA PO; +NO HOME MEDS; -PANT40TA54 PO; -POTA-207 PO; -VALP250C44 PO; +thiamine tablet PO
[2024-04-17 10:47] VITALS: BP 127/77; PULSE 102; RESP 16; TEMP 98.3; O2SAT 97
[2024-04-17 11:12] LABS: BILIRUBIN,URINE NEGATIVE (Neg); CLARITY,URINE CLEAR (Clear); COLOR,URINE STRAW (Yellow); GLUCOSE, URINE NEGATIVE (Neg); KETONES,URINE NEGATIVE (Neg); LEUKOCYTE ESTERASE ,URINE TRACE (Neg); NITRITES, URINE NEGATIVE (Neg); OCCULT BLOOD,URINE NEGATIVE (Neg); PROTEIN,URINE NEGATIVE (Neg); UROBILINOGEN,URINE 0.2 E.U/dL (0.2-1.0)
[2024-04-17 11:15] LABS: UA COLLECTION TYPE NON-SPECIFIED
[2024-04-17 11:25] LABS: RBC,URINE NONE SEEN /HPF (0-2)
[2024-04-17 11:28] LABS: BACTERIA,URINE FEW /HPF (Neg); MUCUS STRANDS NONE SEEN /LPF (Neg); SQUAMOUS EPITHELIAL CELL,UR NONE SEEN /LPF (FEW)
[2024-04-17] MEDS: CefTRIAXone 1000mg IM Kit (w/lidocaine diluent) IM STA (11:31)
[2024-04-17] MEDS: azithromycin 250mg tablet PO ONE (11:32)
[2024-04-17] MEDS ORDERED: DOXY-1 PO (12:06)
[2024-04-17 12:37] LABS: SYPHILIS SCREENING TEST POC NEGATIVE (Negative)
[2024-04-21 05:24] LABS: CHLAMYDIA TRACHOMATIS, NAA Negative (Negative)
== END 2024-04-17 12:13 | disposition home or self-care (01) ==
LOC: ER 10:34
DX: N39.0 Urinary tract infection, site not specified (principal); Z11.3 Encounter for screening for infections with a predominantly sexual mode of transmission; F10.90 Alcohol use, unspecified, uncomplicated; Z79.899 Other long term (current) drug therapy; Z98.890 Other specified postprocedural states
CPT/HCPCS: 36415; 81001; 86592; 87088; 87491; 87591; 96372; 99283; J0696

== ENCOUNTER 2024-04-19 14:39 | Emergency (ER) | payer MEDICAID ==
[~2024-04-19 14:39] MED LIST changes: +DOXY-1 PO
== END 2024-04-19 14:46 | disposition left against medical advice (07) ==
LOC: ER 14:39
DX: Z00.00 Encounter for general adult medical examination without abnormal findings (principal); Z53.21 Procedure and treatment not carried out due to patient leaving prior to being seen by health care provider

== ENCOUNTER 2024-04-23 11:28 | Emergency (ER) | payer MEDICAID ==
[~2024-04-23] VITALS: Ht 180.3 cm; Wt 66.4 kg
[2024-04-23] MEDS ORDERED: penicillin G benzathine 1.2 million unit/2ml syringe IM ONE (11:45)
[2024-04-23] MEDS: PENICILLIN G BENZATHINE 2,400,000 UNIT/4 ML SYRINGE IM ONE (12:27)
[2024-04-23 12:40] VITALS: BP 122/68; PULSE 68; RESP 16; TEMP 97.8; O2SAT 97
== END 2024-04-23 12:42 | disposition home or self-care (01) ==
LOC: ER 11:28
DX: Z11.3 Encounter for screening for infections with a predominantly sexual mode of transmission (principal); F10.90 Alcohol use, unspecified, uncomplicated; Z98.890 Other specified postprocedural states; Z79.2 Long term (current) use of antibiotics; Z79.899 Other long term (current) drug therapy
CPT/HCPCS: 96372; 99283; J0561

== ENCOUNTER 2024-04-27 10:35 | Emergency (ER) | payer MEDICAID ==
[~2024-04-27] VITALS: Ht 180.3 cm; Wt 66.8 kg
[2024-04-27 10:40] VITALS: TEMP 98.2
[2024-04-27 12:49] VITALS: O2SAT 96
[2024-04-27] MEDS ORDERED: LEVE500T12 PO (13:04)
[2024-04-27 13:12] VITALS: BP 136/94; PULSE 84; RESP 16
[2024-04-27] MEDS: levetiracetam 250mg tablet PO ONE (13:17)
[2024-04-27 13:24] LABS: BILIRUBIN,URINE NEGATIVE (Neg); CLARITY,URINE CLEAR (Clear); COLOR,URINE STRAW (Yellow); GLUCOSE, URINE NEGATIVE (Neg); KETONES,URINE NEGATIVE (Neg); LEUKOCYTE ESTERASE ,URINE NEGATIVE (Neg); NITRITES, URINE NEGATIVE (Neg); OCCULT BLOOD,URINE NEGATIVE (Neg); PROTEIN,URINE NEGATIVE (Neg); UROBILINOGEN,URINE 0.2 E.U/dL (0.2-1.0)
[2024-04-27 13:29] LABS: UA COLLECTION TYPE CLN CATCH MIDSTREAM
== END 2024-04-27 15:24 | disposition home or self-care (01) ==
LOC: ER 10:35
DX: G40.909 Epilepsy, unspecified, not intractable, without status epilepticus (principal); F17.200 Nicotine dependence, unspecified, uncomplicated; F10.10 Alcohol abuse, uncomplicated; Z98.890 Other specified postprocedural states; Z79.2 Long term (current) use of antibiotics; Z79.899 Other long term (current) drug therapy
CPT/HCPCS: 36415; 81003; 87491; 99283

== ENCOUNTER 2024-11-06 12:31 | Emergency (ER) | payer MEDICAID ==
[~2024-11-06] VITALS: Ht 177.8 cm; Wt 68.3 kg
[~2024-11-06 12:31] MED LIST changes: -DOXY-1 PO; +LEVE500T12 PO
[2024-11-06 12:33] VITALS: BP 149/99; PULSE 86; RESP 16; TEMP 97.7; O2SAT 100
--- NOTE | 2024-11-06 12:41 | Physician Documentation ---
History of Present Illness ~ Chief Complaint: Medical Clearance Stated Complaint: MED CLEARANCE Time Seen by MD: 12:37 OK to notify your PCP?: Yes Primary Medical Doctor: none Source: patient Mode of Arrival: POV Exam Limitations: no limitations HPI 34-year-old male who is here for clearance for [facility] [employer] for alcoholism. He last drank yesterday. He went to [employer] this morning but was told he needed to come here for a medical clearance. Denies any illicit drug use. Denies any symptoms such as hallucinations, delirium, cp, palpitations, SOB, headache, nausea, vomiting, abdominal pain. No history of seizures. Patient reports his only symptom is "I feel a little shaky." Tetanus within 5 years?: No Medication Reconciliation Allergies: Coded Allergies: No Known Allergies (Unverified , 04/27/24) Scheduled Folic Acid* (Folic Acid*), 1 MG PO DAILY Levetiracetam (Keppra Xr), 2 TAB PO DAILY Metoprolol Tartrate (Lopressor tablet), 12.5 MG PO BID [thiamine tablet], 100 MG PO DAILY Miscellaneous Medications Home Med List (No Home Medications), (Reported) Past Medical History Past Medical History: Seizures, Pancreatitis, UTI, *MUSCULOSKELETAL* Past Surgical History: orthopedic surgeries Patient History: Patient reports no known family medical history. Alcohol Use: Abuse Drug Use: none Lives with: Family Lives In: Home Review of Systems All Other Systems at this time: Reviewed and Negative Physical Exam Vital Signs: Temperature: 97.7, Source: Oral, Heart Rate: 86, Respiratory Rate: 16, BP: 149/99, Pulse Oximetry: 100, Weight: 68.300 Oxygen Flow Rate: 0 Physical Exam GENERAL: Alert, no acute distress. HEENT: NCAT, EOMI, PERRL, moist oral mucosa. NECK: Supple, trachea midline. CARDIAC: Regular rate and rhythm, no murmurs, rubs, or gallops. PV: Equal distal pulses. No lower extremity edema, cap refill less than 2 seconds. RESPIRATORY: Equal breath sounds, clear to auscultation bilaterally, no respiratory distress. GASTROINTESTINAL: Non distended, soft, nontender, No guarding or rebound. MUSCULOSKELETAL: Normal gait. NEUROLOGICAL: Awake, alert, and oriented x 3. SKIN: Warm/dry, no pallor, no rash. PSYCH: Alert and appropriate. Affect congruent with mood. Speech is clear. Good eye contact. Progress Results/Orders Results/Orders Vital Signs 11/06/24 12:33 Temp 97.7 Pulse 86 Resp 16 B/P (MAP) 149/99 Pulse Ox 100 O2 Flow Rate 0 Medical Decision Making Differential Dx:Considerations: Include: Intoxication-Alcohol, Intoxication- Other drug, Personality disorder, Substance abuse disorder, Acute delirium, Closed head injury, Cervical spine injury, Skull fracture, Fracture(s), Abrasion, Contusion, Foreign body, Hematoma, Laceration, Alcohol withdrawl syndrom, Encephalopathy, Hepatitis, Medically stable, Other Departure Time of Disposition: 12:39 Disposition: 01 HOME / SELF CARE / HOMELESS Impression: Primary Impression: Alcoholism Condition: Stable Discharge Instructions: Alcohol Abuse and Nutrition Additional Instructions: YOU ARE MEDICALLY CLEARED FOR [facility] Referrals: NO PRIMARY CARE PROVIDER (PCP) Education Educated: Patient Educated regarding: diagnosis, treatment, need for follow up Signature Scribe Signature: X Attestation: JALEEL GRAVES November 06, 2024 12:41
== END 2024-11-06 12:51 | disposition home or self-care (01) ==
LOC: ER 12:32
DX: F10.20 Alcohol dependence, uncomplicated (principal); Z79.899 Other long term (current) drug therapy; Y90.9 Presence of alcohol in blood, level not specified
CPT/HCPCS: 99281

== ENCOUNTER 2025-05-11 08:09 | Outpatient (CLI) | payer MEDICAID ==
[2025-05-11] VITALS (21 sets, daily range): BP systolic 108–134; BP diastolic 72–87; PULSE 93–132
== END 2025-05-11 23:59 | disposition home or self-care (01) ==
LOC: CARD DIAG 08:09
PROVIDERS: ATTEND Internal Medicine Interventional Cardiology
DX: R42 Dizziness and giddiness (principal)
CPT/HCPCS: 93660

== ENCOUNTER 2025-06-24 05:02 | Emergency (ER) | payer MEDICAID ==
[~2025-06-24] VITALS: Ht 175.3 cm; Wt 70.0 kg
[2025-06-24] MEDS ORDERED: GABA300T28 (05:17)
[2025-06-24] MEDS ORDERED: PANT40TA54 PO (05:17)
[2025-06-24] MEDS ORDERED: QUET200T31 PO (05:17)
[2025-06-24] MEDS ORDERED: ACET-75 PO (05:17)
[2025-06-24] MEDS ORDERED: ONDA-243 PO (05:17)
[2025-06-24] MEDS ORDERED: DULO60CA65 PO (05:17)
[2025-06-24] MEDS ORDERED: PRAZ1CAP5 PO (05:17)
[2025-06-24] MEDS: TETanus/Pertussis (Acell)/Diphther VAC/PF (Tdap-Adult) 0.5ml syringe IMVAC ONE (05:33)
[2025-06-24 06:58] LABS: MEAN PLATELET VOLUME 7.3 FL (7.4-10.4); RED CELL DISTRIBUTION WIDTH 14.3 % (11.5-14.5)
[2025-06-24 07:20] LABS: CREATININE 0.95 MG/DL (0.60-1.10); ETHANOL 213 MG/DL (<10); TOTAL CARBON DIOXIDE 24.7 MMOL/L (24-32); eCRCL 110 ML/MIN; eGFR > 90 ML/MIN
[2025-06-24 07:32] LABS: LEUKOCYTE ESTERASE ,URINE NEGATIVE (Neg); NITRITES, URINE NEGATIVE (Neg); OCCULT BLOOD,URINE NEGATIVE (Neg)
[2025-06-24 07:35] LABS: UA COLLECTION TYPE CLN CATCH MIDSTREAM
[2025-06-24 07:38] LABS: URINE AMPHETAMINE SCREEN NEGATIVE (Neg); URINE BARBITUATE SCREEN NEGATIVE (Neg); URINE BENZODIAZEPINES SCREEN NEGATIVE (Neg); URINE CANNABINOID SCREEN NEGATIVE (Neg); URINE COCAINE SCREEN NEGATIVE (Neg); URINE METHADONE SCREEN NEGATIVE (Neg); URINE OPIATE SCREEN NEGATIVE (Neg); URINE PHENCYCLIDINE SCREEN NEGATIVE (Neg)
[2025-06-24] MEDS: LIDOcaine 1% W/epiNEPHrine 1:100,000 20ml vial SQ ONE (07:51)
[2025-06-24] MEDS: ibuprofen tablet 400 MG TABLET PO ONE (09:25)
--- NOTE | 2025-06-24 09:42 | Physician Documentation ---
History of Present Illness ~ General Chief Complaint: Laceration Stated Complaint: HAND LAC Time Seen by MD: 07:39 Primary Medical Doctor: none Source: patient Mode of Arrival: EMS History of Present Illness Initial Comments CC: Laceration on left hand HPI: Patient is a 35-year-old male brought in by ambulance from home to the ED for evaluation of laceration to left hand. Per EMS the patient was playing with his knife collection when he accidentally" cut the left side of his hand. The patient denies any SI/HI but his said that patient was trying to "kill himself" per RN report. [place] [employer] [facility] has a put the patient on a hold. The patient is not up-to-date with a tetanus shot. ROS: Constitutional: Negative for fever and chills. HENT: Negative for sore throat and rhinorrhea. Eyes: Negative for pain and redness. Respiratory: Negative for cough and SOB. Cardiovascular: Negative for chest pain and palpitations. Gastrointestinal: Negative for nausea and vomiting. . Genitourinary: Negative for dysuria and hematuria. Musculoskeletal: Negative for acute back pain and acute neck pain. Skin: Positive for a laceration on left hand Neurological: Negative for acute numbness or weakness. PMH: None Medication Reconciliation Allergies: Coded Allergies: No Known Allergies (Unverified , 04/27/24) Scheduled Duloxetine HCl (Duloxetine HCl), 120 MG PO DAILY, (Reported) Pantoprazole Sodium (Pantoprazole Sodium), 1 TAB PO DAILY, (Reported) Prazosin Hcl (Prazosin Hcl), 4 MG PO HS, (Reported) Quetiapine Fumarate (Quetiapine Fumarate), 1 TAB PO HS, (Reported) Scheduled PRN Acetaminophen (Acetaminophen), 1 TAB PO Q8H PRN for pain, (Reported) Miscellaneous Medications Gabapentin (Gabapentin ER), (Reported) ONDANSETRON ODT 4mg tablet (Ondansetron Odt), PO, (Reported) Discontinued Medications Folic Acid* (Folic Acid*), 1 MG PO DAILY Discontinued Reason: patient no longer taking Home Med List (No Home Medications), (Reported) Discontinued Reason: patient no longer taking Levetiracetam (Keppra Xr), 2 TAB PO DAILY Discontinued Reason: patient no longer taking Metoprolol Tartrate (Lopressor tablet), 12.5 MG PO BID Discontinued Reason: patient no longer taking [thiamine tablet], 100 MG PO DAILY Discontinued Reason: patient no longer taking Past Medical History Past Medical History: Seizures, Pancreatitis, UTI, *MUSCULOSKELETAL* Past Surgical History: orthopedic surgeries Patient History: Patient reports no known family medical history. Smoking Status: Former smoker Alcohol Use: Abuse Drug Use: none Lives with: Family Lives In: Home Physical Exam Physical Exam Vital Signs: Temperature: 97.7, Source: Oral, Heart Rate: 116, Respiratory Rate: 18, BP: 128/89, Pulse Oximetry: 95, Weight: 70.000 Physical Exam General: Awake. No distress. Verbal Head: No trauma Eyes: Nl lids Nl conjunctiva. No eye discharge ENT: Mucous membranes Nl. Lips Nl. No lesions Neck: Supple. No JVD. No visible mass Resp: Rate normal. No respiratory distress. No retractions. Normal air flow. No wheezes, rhonchi, or rales. Heart: Regular rhythm. No murmur. No rub Abdomen: Soft. Nontender. No guarding. No rebound Musc/skeletal: No calf or popliteal tenderness. No edema. Full range of motion. Positive tingling to left small finger. Positive sensation. Normal FDP and FDS and extensor tendon function. Wound examined in a bloodless field through full range of motion of the digit in no tendon visualized or palpated. There was some laceration to the muscle but it is not contiguous with the tendon. Normal median radial and ulnar sensory and motor function with the exception of some tingling on the ulnar side of the small finger Skin: The patient has a 3 cm laceration to the ulnar side of his left palm. Normal FDP and FDS. Neuro: Alert, oriented. Normal speech. See above Procedures Laceration/Wound Repair Laceration/Wound Repair : Location: Left palm Length (cm): 3 Anesthesia: Lidocaine w/ Epi Prep: irrigated by physician Margins: revised Foreign Body: not identified Repaired: skin, subcutaneous Wound Repaired With: sutures Suture Size/Type: 4-0, prolene Number of Superficial Sutures: 8 Tolerated Procedure Well?: yes, no complications Procedure Note Positive tingling to left small finger. Progress Progress Note 10:09 a.m. the patient is alert oriented coherent. At this time he is medically cleared for [facility] to evaluate the patient Rechecked pulse 92 1145 The patient is seen by Mental Health Results/Orders Results/Orders Orders - YOGESH HUTSON MD Med Rec (06/24/25 06:24) Close Observation Level (06/24/25 06:24) Covid19 Binax Poc Result Entry (06/24/25 06:24) Substance Use Navigator (06/24/25 06:24) Regular Diet (06/24/25 Lunch) Completed Orders - YOGESH HUTSNO MD Cbc/Diff (06/24/25 06:24) Urinalysis (06/24/25 06:24) Drug Screen, Urine (06/24/25 06:24) Ethanol (06/24/25 06:24) TSH (06/24/25 06:24) BMP (06/24/25 06:24) Lidocaine 1% W/Epi 1:100,000 (Xylocaine (06/24/25 07:40) Ibuprofen Tablet (Motrin Tablet) (06/24/25 09:05) Vital Signs 06/24/25 06/24/25 06/24/25 05:04 10:20 16:49 Temp 97.7 97.9 Pulse 116 75 Resp 18 17 18 B/P (MAP) 128/89 138/94 (109) Pulse Ox 95 97 Laboratory Tests Test 06/24/25 05:17 06/24/25 06:47 06/24/25 07:11 SARS-CoV-2 Antigen (Rapid) Negative White Blood Count 11.9 H Red Blood Count 4.57 L Hemoglobin 13.3 L Hematocrit 39.2 L Mean Corpuscular Volume 85.9 Mean Corpuscular Hemoglobin 29.0 Mean Corpuscular Hemoglobin Concent 33.8 Red Cell Distribution Width 14.3 Platelet Count 322 Mean Platelet Volume 7.3 L Neutrophils (%) (Auto) 69.9 Lymphocytes (%) (Auto) 24.0 Monocytes (%) (Auto) 3.7 Eosinophils (%) (Auto) 1.7 Basophils (%) (Auto) 0.7 Neutrophils # (Auto) 8.3 H Lymphocytes # (Auto) 2.8 Monocytes # (Auto) 0.4 Eosinophils # (Auto) 0.2 Basophils # (Auto) 0.1 CBC Comment Sodium Level 142 Potassium Level 4.1 Chloride Level 106 Carbon Dioxide Level 24.7 Anion Gap 11 Blood Urea Nitrogen 13 Creatinine 0.95 Estimated GFR/1.73 m2 > 90 BUN/Creatinine Ratio 13.7 Glucose Level 101 Calcium Level 8.8 Albumin 4.2 Thyroid Stimulating Hormone (TSH) 1.18 Chemistry Comments Ethyl Alcohol Level 213 H Urine Specimen Description Cln catch midstream Urine Color Yellow Urine Clarity Clear Urine pH 7.0 Urine Specific [place] 1.010 Urine Protein Negative Urine Glucose (UA) Negative Urine Ketones Negative Urine Occult Blood Negative Urine Nitrite Negative Urine Bilirubin Negative Urine Urobilinogen 0.2 Urine Leukocyte Esterase Negative Volume Urine Centrifuged 10 ml Urine Comment Urine Opiates Screen Negative Urine Methadone Screen Negative Urine Fentanyl Screen Negative Urine Barbiturates Screen Negative Urine Phencyclidine Screen Negative Urine Amphetamines Screen Negative Urine Benzodiazepines Screen Negative Urine Cocaine Screen Negative Urine Cannabinoids Screen Negative Drug Screen Comment Medical Decision Making Additional information obtaine: N/A Findings Patient is a 35-year-old male brought in by ambulance from home to the ED for evaluation of laceration to left hand. Per EMS the patient was playing with his knife collection when he accidentally" cut the left side of his hand. The patient denies any SI/HI but his said that patient was trying to "kill himself" per RN report. [place] [facility] has a put the patient on a hold. The patient is not up-to-date with a tetanus shot. MDM: Limited: (2 points from category 1 or one discussion with independent historian). Moderate: one of the following (3 points from category 1, or independent interpretations of tests performed by another physician/QHP: (ct,ecg,rad kelly,rhy thm strip,or comparing xray to prior), or discussion of tests or management with other professionals (not including [facility] ER doc/PA or family members.) High: (2 of 3 from : category 1 (3 points), independent interpretation of tests performed by another physician/QHP, and discussion of tests or management). Prior ER notes reviewed: Category 1: Number of Tests ordered or reviewed: 0 Number of Independent Historians: 0 Non [facility] ER notes reviewed: 1. 2. 3. Category 2: I independently interpreted the: Category 3: Discussion with other professionals: Case discussed with the mental health evaluater she will speak with the and make a decision [employer] Problems related to: ( )Challenges with access to Primary Care or Outpatient Speciality Care ( )Psychosocial circumstances such as mental health issues (x )Social environment: such as violence or substance abuse ( )Housing and economic circumstances: such as homelessness ( )Employment and unemployment: such as recently loss of employment ( )Occupational exposures or injuries: ( )Accessing ED outside of normal PCP hours ( )Language barrier: ( )Primary support group, including family circumstances: Prescription Management: Rx strength meds given in ED: Lidocaine New Prescriptions: No indication for tetanus he had it within five years or antibiotics ( )I have reviewed the patient's medications and I do not recommend any changes at this time. (Applies only if checked) Comorbid conditions include but are not limited to: Alcohol use depression Testing or interventions considered: No indication for emergent hand surgery consultation. Discussed follow up for the neurapraxia. Discussed wound precautions and follow up and return instructions Differential includes but is not limited to: Tendon injury. Low suspicion for foreign body. Doubt fracture. Laceration sutured. Mental health evaluation obtained Differential Diagnosis See MDM Departure Time of Disposition: 10:15 Disposition: 30 STILL A PATIENT Impression: Primary Impression: Laceration Additional Impressions: Depression Depression Medical clearance for psychiatric admission Condition: Fair Additional Instructions: Transfer orders for [facility]: At this time there is no evidence of an emergent medical condition that would preclude (admission/transfer) to a psychiatric unit via [facility] protocol for further psychiatric, as well as medical evaluation and treatment. At this time I have no reason to believe that transfer via [facility] protocol would have serious medical compromise in the patient's health. The patient will require wound check in two days and suture removal in eight days. Return for any redness, swelling, pus, or fever Referrals: NO PRIMARY CARE PROVIDER (PCP) Signature Scribe Signature: Scribed for Yogesh Hutson MD by Michelle Valadez . 06/24/25 09:43 Attestation: Scribed for Yogesh Hutson MD by Yogesh Hutson. 06/24/2025 0943 YOGESH HUTSON MD Jun 24, 2025 09:42 MICHELLE PAINTING Jun 24, 2025 09:42
[2025-06-25] MEDS: bacitracin 15gm ointment TP ONE (01:33)
[2025-06-25 05:23] VITALS: BP 123/76; PULSE 78; RESP 18; TEMP 98.2; O2SAT 99
[2025-06-25] MEDS ORDERED: CEPH-585 PO (12:00)
== END 2025-06-25 12:04 | disposition home or self-care (01) ==
LOC: ER 05:03
DX: S61.412A Laceration without foreign body of left hand, initial encounter (principal); F32.A Depression, unspecified; Z87.440 Personal history of urinary (tract) infections; Z87.19 Personal history of other diseases of the digestive system; Z59.00 Homelessness unspecified; Z56.0 Unemployment, unspecified; Z79.899 Other long term (current) drug therapy; Z98.890 Other specified postprocedural states; Z20.822 Contact with and (suspected) exposure to COVID-19; W26.9XXA Contact with unspecified sharp object(s), initial encounter; Y93.89 Activity, other specified; Y92.89 Other specified places as the place of occurrence of the external cause; Y99.8 Other external cause status
CPT/HCPCS: 12002; 36415; 80048; 80305; 80320; 81003; 84443; 85025; 87811; 90471; 90715; 99285; A4565; A6258; A6449